=== PATIENT | female | born 1970 | race Caucasian/White ===

== ENCOUNTER 2018-11-08 08:05 | Inpatient (IN) | payer BC ==
[~2018-11-08 08:05] MED LIST: Buffered Lidocaine 1% SYRIN* 1 ML/SYRINGE INTRADERM ONE; Lactated Ringers 1000 ML Bag* 1,000 ML IV SCH; Tranexamic Acid 1,000 MG in NS 0.9% 50 ML* (outpatient use) IV SCH
--- OUTSIDE RECORDS SUMMARY | 2018-11-08 08:08 | XMS REPORT | Continuity of Care Document ---
:1970 External Reference #:[id number] Author Name Leslie Payan Care Team Providers Name Role Phone Joe William MD Primary Care Physician Unavailable Payers Date Identification Numbers Payment Provider Subscriber Policy Number: [id number] [employer] Cleopatra Dixon PayID: [id number] [address] [address] CARIE Stoner [address] Problems Active Problems Provider Date Adult health examination Joe William MD Onset: 09/04/2018 Vitamin B6 deficiency Joe William MD Onset: 09/04/2018 Chronic ulcerative proctitis Joe William MD Onset: 09/04/2018 Inflammatory polyarthropathy Joe William MD Onset: 09/04/2018 Hyperlipidemia screening Joe William MD Onset: 09/04/2018 Localized, primary osteoarthritis of the pelvic Erica Jorge Luis Rouse Onset: region and thigh Family History Date Family Member(s) Observation Comments General Thyroid Disease General Rheumatoid Arthritis General Colitis General Heart Disease General Hypertension General Stroke General Cancer Father due to liver failure () Father Liver failure Mother Thyroid Disease hypothyroid Mother Heart Disease Siblings 2 1 sister- hypothyroid 1 brother- healthy Social History Type Date Description Comments Sex Unknown Marital Status Lives With Occupation office work ETOH Use Rarely consumes alcohol Tobacco Use Start: Unknown End: Patient is a former smoker Unknown Recreational Drug Use Denies Drug Use Smoking Status Reviewed: 10/31/18 Patient is a former smoker Exercise Type/Frequency Does not exercise Allergies, Adverse Reactions, Alerts Description No Known Drug Allergies Medications Active Medications SIG Qnty Indications Ordering Provider Date B6 Natural take one 60tabs Joe William MD 08/30/2018 100mg Tablets capsule/tablet daily by mouth Plaquenil 2 by mouth daily 45tabs Avery Chawla 08/30/2018 200mg Tablets ongoing M.D. Levothyroxine Sodium 50mcg by mouth 30tabs E06.3 Pascual Velasquez MD 2018 daily on empty 50mcg Tablets stomach Mesalamine 2 tablets in the Foor-Pessin, 1.2gm Tablets am and 2 tablets Jorge Luis B[address] DR in the pm History Medications Ferrous Gluconate 1 by mouth daily 90tabs Joe William MD 09/16/2018 - 10/25/2018 324(37.5Fe) mg Tablets Celebrex take one 30caps M06.4 Avery Chawla 08/30/2018 - 200mg capsule/tablet Jorge Luis 10/12/2018 Capsules daily by mouth as needed for pain, avoid ibuprofen and other nsaids Medications Administered in Office Medication SIG Qnty Indications Ordering Provider Date Depomedrol 40MG Erica Rouse M.D. 09/13/2018 Injection Vital Signs Date Vital Result Comment 10/31/2018 8:37am Height 70 inches 5'10" Weight 195.00 lb Heart Rate 81 /min BP Systolic 126 mmHg BP Diastolic 78 mmHg Pain Level 6 O2 % BldC Oximetry 98 % BMI (Body Mass Index) 28.0 kg/m2 10/28/2018 8:44am Height 70 inches 5'10" Weight 195.25 lb Heart Rate 78 /min BP Systolic 126 mmHg BP Diastolic 78 mmHg Respiratory Rate 12 /min Pain Level 5 BMI (Body Mass Index) 28.0 kg/m2 10/25/2018 11:22am Height 70 inches 5'10" Weight 194.38 lb Heart Rate 77 /min BP Systolic 134 mmHg BP Diastolic 88 mmHg Body Temperature 97.7 F O2 % BldC Oximetry 98 % BMI (Body Mass Index) 27.9 kg/m2 10/18/2018 11:44am Height 70 inches 5'10" Weight 195.00 lb w/ shoes Heart Rate 78 /min BP Systolic Sitting 133 mmHg BP Diastolic Sitting 88 mmHg BMI (Body Mass Index) 28.0 kg/m2 10/07/2018 10:50am Height 70 inches 5'10" Weight 201.00 lb Heart Rate 78 /min BP Systolic 122 mmHg BP Diastolic 70 mmHg Respiratory Rate 12 /min Pain Level 7 BMI (Body Mass Index) 28.8 kg/m2 09/13/2018 10:58am Height 70 inches 5'10" Weight 201.00 lb BP Systolic 124 mmHg BP Diastolic 64 mmHg Body Temperature 97.9 F BMI (Body Mass Index) 28.8 kg/m2 09/04/2018 8:34am Height 71 inches 5'11" Weight 203.00 lb Heart Rate 74 /min BP Systolic 154 mmHg BP Diastolic 90 mmHg Respiratory Rate 16 /min Body Temperature 99.1 F O2 % BldC Oximetry 98 % BMI (Body Mass Index) 28.3 kg/m2 08/30/2018 9:45am Height 71 inches 5'11" Weight 202.00 lb Heart Rate 79 /min BP Systolic Sitting 122 mmHg BP Diastolic Sitting 80 mmHg Pain Level 5 O2 % BldC Oximetry 98 % BMI (Body Mass Index) 28.2 kg/m2 08/20/2018 10:49am Height 71 inches 5'11" Weight 204.00 lb w/ o shoes Heart Rate 75 /min BP Systolic Sitting 151 mmHg BP Diastolic Sitting 88 mmHg BMI (Body Mass Index) 28.4 kg/m2 07/18/2018 7:51am Height 71 inches 5'11" Weight 206.38 lb Heart Rate 108 /min BP Systolic Sitting 128 mmHg BP Diastolic Sitting 80 mmHg Pain Level 7 O2 % BldC Oximetry 97 % BMI (Body Mass Index) 28.8 kg/m2 Results Test Date Facility Test Result H/L Range Note CBC Auto 10/28/2018 [facility] White Blood 5.4 10^3/uL Normal 3.5-10.[address] [place] [address] [phone] Red Blood Count 4.83 10^6/uL Normal 3.70-4.87 Hemoglobin 13.8 g/dL Normal 12.0-16.0 Hematocrit 40 % Normal 35-47 Mean Corpuscular Volume 82 fL Normal 80-97 Mean Corpuscular Hemoglobin 29 pg Normal 27-31 Mean Corpuscular HGB Conc 35 g/dL Normal 31-36 Red Cell Distribution Width 16 % High 10-15 Platelet Count 268 10^3/uL Normal 150-450 Mean Platelet Volume 8.1 fL Normal 7.4-10.4 Abs Neutrophils 3.6 10^3/uL Normal 1.5-7.7 Abs Lymphocytes 1.3 10^3/uL Normal 1.0-4.8 Abs Monocytes 0.4 10^3/uL Normal 0-0.8 Abs Eosinophils 0.0 10^3/uL Normal 0-0.6 Abs Basophils 0.0 10^3/uL Normal 0-0.2 Abs Nucleated RBC 0.0 10^3/uL Granulocyte % 67.2 % Lymphocyte % 24.7 % Monocyte % 7.4 % Eosinophil % 0.1 % Basophil % 0.6 % Nucleated Red Blood Cells % 0.0 Inr/Protime 10/28/2018 [facility] Inr 1.06 Normal 0.82-1.[address] [place] [address] [phone] Laboratory test 10/28/2018 [facility] Partial 33.7 Normal 26.0 -38.[address] [place] [address] [place] [address] Time PTT [phone] Urinalysis 10/28/2018 [facility] Urine Color Yellow Profile [address] [place] [address] [phone] Urine Appearance Clear Urine Specific [place] 1.025 Normal 1.010-1.030 Urine pH 5.0 Normal 5-9 Urine Urobilinogen Negative Negative Urine Ketones Negative Negative Urine Protein Negative Negative Urine Leukocytes Trace Abnormal Negative Urine Blood Negative Negative Urine Nitrite Negative Negative Urine Bilirubin Negative Negative Urine Glucose Negative Negative Urine White Blood Cell Trace(0-5/hpf) Absent Urine Red Blood Cell Trace(0-2/hpf) Absent Urine Bacteria Absent Absent Urine Squamous Epithelial Cell Present Abnormal Absent Type & Screen 10/28/2018 [facility] Patient Blood Type A Negative [address] [place] [address] [phone] Antibody Screen NEGATIVE Comp Metabolic 10/28/2018 [facility] Sodium 138 mmol/L Normal 135-[address] [place] [phone] Potassium 4.1 mmol/L Normal 3.5-5.0 Chloride 109 mmol/L Normal 101-111 Co2 Carbon Dioxide 23 mmol/L Normal 22-32 Anion Gap 6 mmol/L Normal 2-11 Glucose 91 mg/dL Normal 70-100 Blood Urea Nitrogen 13 mg/dL Normal 6-24 Creatinine 0.78 mg/dL Normal 0.51-0.95 BUN/Creatinine Ratio 16.7 Normal 8-20 Calcium 9.6 mg/dL Normal 8.6-10.3 Total Protein 7.0 g/dL Normal 6.4-8.9 Albumin 4.5 g/dL Normal 3.2-5.2 Globulin 2.5 g/dL Normal 2-4 Albumin/Globulin Ratio 1.8 Normal 1-3 Total Bilirubin 0.40 mg/dL Normal 0.2-1.0 Alkaline Phosphatase 56 U/L Normal 34-104 Alt 12 U/L Normal 7-52 Ast 15 U/L Normal 13-39 Egfr Non- 78.2 >60 Egfr 94.6 >60 2 Urine Culture And 10/28/2018 [facility] Urine SEE RESULT [address] [place] [address] [phone] Order 10/25/2018 [facility] In-House EKG reviewed by Dr. William Comp Metabolic 10/25/2018 [facility] Sodium 139 mmol/L Normal 135- Panel [address] [place] [address] [phone] Potassium 4.1 mmol/L Normal 3.5-5.0 Chloride 108 mmol/L Normal 101-111 Co2 Carbon Dioxide 24 mmol/L Normal 22-32 Anion Gap 7 mmol/L Normal 2-11 Glucose 80 mg/dL Normal 70-100 Blood Urea Nitrogen 11 mg/dL Normal 6-24 Creatinine 0.82 mg/dL Normal 0.51-0.95 BUN/Creatinine Ratio 13.4 Normal 8-20 Calcium 9.6 mg/dL Normal 8.6-10.3 Total Protein 6.9 g/dL Normal 6.4-8.9 Albumin 4.5 g/dL Normal 3.2-5.2 Globulin 2.4 g/dL Normal 2-4 Albumin/Globulin Ratio 1.9 Normal 1-3 Total Bilirubin 0.40 mg/dL Normal 0.2-1.0 Alkaline Phosphatase 57 U/L Normal 34-104 Alt 11 U/L Normal 7-52 Ast 14 U/L Normal 13-39 Egfr Non- 73.8 >60 Egfr 89.3 >60 4 Laboratory test 10/25/2018 [facility] Erythrocyte Sed 5 mm/Hr Normal 0-29 [address] [place] [address] [phone] C Reactive Protein 4.73 mg/L Normal <8.01 6 CBC Auto 10/25/2018 [facility] White Blood 4.9 10^3/uL Normal 3.5-10.[address] [place] [address] [phone] Red Blood Count 4.79 10^6/uL Normal 3.70-4.87 Hemoglobin 13.3 g/dL Normal 12.0-16.0 Hematocrit 40 % Normal 35-47 Mean Corpuscular Volume 83 fL Normal 80-97 Mean Corpuscular Hemoglobin 28 pg Normal 27-31 Mean Corpuscular HGB Conc 34 g/dL Normal 31-36 Red Cell Distribution Width 16 % High 10-15 Platelet Count 266 10^3/uL Normal 150-450 Mean Platelet Volume 8.7 fL Normal 7.4-10.4 Abs Neutrophils 3.2 10^3/uL Normal 1.5-7.7 Abs Lymphocytes 1.2 10^3/uL Normal 1.0-4.8 Abs Monocytes 0.4 10^3/uL Normal 0-0.8 Abs Eosinophils 0.0 10^3/uL Normal 0-0.6 Abs Basophils 0.0 10^3/uL Normal 0-0.2 Abs Nucleated RBC 0.0 10^3/uL Granulocyte % 65.6 % Lymphocyte % 25.3 % Monocyte % 8.3 % Eosinophil % 0.1 % Basophil % 0.7 % Nucleated Red Blood Cells % 0.0 Laboratory test 10/18/2018 [facility] T4 Free Thyroxine <pending> finding [address] [place] [address] [phone] TSH Thyroid Stimulating Horm <pending> CBC Auto 09/04/2018 [facility] White Blood 4.8 10^3/uL Normal 3.5-10.[address] [place] [address] [phone] Red Blood Count 4.83 10^6/uL Normal 3.70-4.87 Hemoglobin 13.1 g/dL Normal 12.0-16.0 Hematocrit 39 % Normal 35-47 Mean Corpuscular Volume 81 fL Normal 80-97 Mean Corpuscular Hemoglobin 27 pg Normal 27-31 Mean Corpuscular HGB Conc 33 g/dL Normal 31-36 Red Cell Distribution Width 15 % Normal 10-15 Platelet Count 276 10^3/uL Normal 150-450 Mean Platelet Volume 8.4 fL Normal 7.4-10.4 Abs Neutrophils 3.3 10^3/uL Normal 1.5-7.7 Abs Lymphocytes 1.1 10^3/uL Normal 1.0-4.8 Abs Monocytes 0.3 10^3/uL Normal 0-0.8 Abs Eosinophils 0.0 10^3/uL Normal 0-0.6 Abs Basophils 0.0 10^3/uL Normal 0-0.2 Abs Nucleated RBC 0.0 10^3/uL Granulocyte % 69.3 % Lymphocyte % 23.0 % Monocyte % 7.2 % Eosinophil % 0.0 % Basophil % 0.5 % Nucleated Red Blood Cells % 0.0 Laboratory test 09/04/2018 [facility] Hemoglobin A1c 5.1 % Normal 4.0-5.6 [address] (Glyco HGB) [place] [address] [phone] Comp Metabolic 09/04/2018 [facility] Sodium 139 Normal 135- [address] mmol/[place] [address] [phone] Potassium 4.2 mmol/L Normal 3.5-5.0 Chloride 109 mmol/L Normal 101-111 Co2 Carbon Dioxide 23 mmol/L Normal 22-32 Anion Gap 7 mmol/L Normal 2-11 Glucose 89 mg/dL Normal 70-100 Blood Urea Nitrogen 12 mg/dL Normal 6-24 Creatinine 0.71 mg/dL Normal 0.51-0.95 BUN/Creatinine Ratio 16.9 Normal 8-20 Calcium 9.7 mg/dL Normal 8.6-10.3 Total Protein 6.6 g/dL Normal 6.4-8.9 Albumin 4.3 g/dL Normal 3.2-5.2 Globulin 2.3 g/dL Normal 2-4 Albumin/Globulin Ratio 1.9 Normal 1-3 Total Bilirubin 0.40 mg/dL Normal 0.2-1.0 Alkaline Phosphatase 68 U/L Normal 34-104 Alt 12 U/L Normal 7-52 Ast 14 U/L Normal 13-39 Egfr Non- 87.1 >60 Egfr 105.4 >60 8 Iron & Iron Binding 09/04/2018 [facility] Iron 40 g/dL Low 50-[address] [place] [address] [phone] Unsaturated Iron Binding < 405 g/dL Total Iron Binding Capacity 420 g/dL Normal 250-450 Transferrin 300 mg/dL Normal 203-362 % Iron Saturation 10 % Low 15-55 Laboratory test 09/04/2018 [facility] Ferritin 8.4 ng/mL Low 11-[address] [place] [address] [phone] Lipid Profile 09/04/2018 [facility] Triglycerides 135 mg/dL 10 (Trig/Chol/HDL) [address] [place] [address] [phone] Cholesterol 171 mg/dL 11 HDL Cholesterol 40.0 mg/dL 12 LDL Cholesterol 104 mg/dL 13 Laboratory test 07/18/2018 [facility] Nuclear AB <1:80 (Negative ) [address] (Laisha) [place] [address] Igg [phone] Rheumatoid Factor < 10 IU/mL Normal <15 15 Cyclic Citrullinated Pep Igg <15.6 U 16 Celiac Hla 07/18/2018 [facility] Hla-Dqa1 SEE BELOW [address] [place] [address] [phone] Hla-[id number] SEE BELOW 18 Celiac Gene Pairs Present? No Celiac Gene Interpretation See Comment 19 Laboratory test 07/18/2018 [facility] Aldolase 7.9 U/L Abnormal <7.[address] [place] [address] [phone] Uric Acid 4.4 mg/dL Normal 2.3-6.6 21 Lyme Screen W/ Reflex To WB Negative Negative 22 Vitamin B6 07/18/2018 [facility] Pyridoxal <2 g/L Abnormal 5 -[address] [place] 5[place] [address] [phone] Pyridoxic Acid 4 g/L 3-30 24 Laboratory test 07/18/2018 [facility] Vitamin D 27.7 Normal 20 -[address] Total ng/[place] [address] 25(Oh) [phone] Protein 07/18/2018 [facility] Total 7.1 g/dL 6.3 - Electrophoresis DRIVE Protein(Pep 7.9 [place] [address] ) [phone] Albumin 3.6 g/dL 3.4-4.7 Alpha-1 Globulin 0.3 g/dL 0.1-0.3 Alpha-2 Globulin 1.0 g/dL 0.6-1.0 Beta Globulin 1.1 g/dL 0.7-1.2 Gamma Globulin 1.1 g/dL 0.6-1.6 Albumin/Globulin Ratio 1.03 Impression See Comment 26 Laboratory 07/18/2018 [facility] Erythrocyte 15 mm/Hr Normal 0 -29 [address] [place] [address] [phone] Anca AB Ser If 07/18/2018 [facility] C-Anca Negative Negative [address] [place] [address] [phone] P-Anca Negative Negative 28 Laboratory test 07/18/2018 [facility] Angiotensin 50 U/L 16 - [address] Converting Enzyme [address] [place] [address] [phone] Celiac Panel 07/18/2018 [facility] Tissue <1.[address] Transglutaminase IgA U/[place] [address] Ab [phone] Immunoglobulin A 163 mg/dL 61 - 356 Celiac Interpretation See Comment 31 Laboratory test 07/18/2018 [facility] TSH (Thyroid 8.22 High 0.34-5.[address] Stim Horm) mcIU/[place] [address] [phone] Thyroperoxidase AB 1610.56 IU/mL High <9 33 Vitamin B12 07/18/2018 [facility] Vitamin B12 456 pg/mL Normal 180-[address] Serum [place], [place] [address] [phone] Folic Acid (Folate) 18.71 ng/mL >3.99 35 Ssa/SSB Abs Igg 07/18/2018 [facility] SS-A/Ro Antibody <0.[address] [place] [address] [phone] SS-B/La Antibody <0.2 U 37 Laboratory test 07/18/2018 [facility] Creatine 52 U/L Normal 10-[address] Kinase(CK) [place] [address] [phone] Hla B27 07/18/2018 [facility] Hla B27 Negative [address] [place] [address] [phone] Hla B27 Interp See Comment 40 1 Standard intensity warfarin therapeutic range: 2.0-3.0 High intensity warfarin therapeutic range: 2.5-3.5 2 Because ethnic data is not always readily available, this report includes an eGFR for both -Americans and non- Americans. The National Kidney Disease Education Program (NKDEP) does not endorse the use of the MDRD equation for patients that are not between the ages of 18 and 70, are , have extremes of body size, muscle mass, or nutritional status, or are non- or non-. According to the National Kidney Foundation, irrespective of diagnosis, the stage of the disease is based on the level of kidney function: Stage Description GFR(mL/min/1.73 m(2)) 1 Kidney damage with normal or decreased GFR 90 2 Kidney damage with mild decrease in GFR 60-89 3 Moderate decrease in GFR 30-59 4 Severe decrease in GFR 15-29 5 Kidney failure <15 (or dialysis) 3 SEE RESULT BELOW Name: CLEOPATRA DIXON : [address]: Erica Rouse MD Acct: [id number] Unit: [id number] AGE: 48 Location: [facility] Re10/28/18 SEX: F Status: REG REF SPEC: [id number] ESEQUIEL: 10/28/18-[address]: Erica Rouse MD REQ: [id number] RECD: 10/28/182 STATUS: ZITA MARIANO DR: Joe William MD _ SOURCE: URINE [facility]: ORDERED: Urine Culture QUERIES: Urine Source: Random Procedure Result Reported Site Urine Culture Final 10/29/18- 1226 ML No growth of clinically significant organisms * ML - Main Lab . END OF REPORT DEPARTMENT OF PATHOLOGY, [address] [place] [address] Dipak Cruz M.D. Director [facility] # [id number] 4 Because ethnic data is not always readily available, this report includes an eGFR for both -Americans and non- Americans. The National Kidney Disease Education Program (NKDEP) does not endorse the use of the MDRD equation for patients that are not between the ages of 18 and 70, are , have extremes of body size, muscle mass, or nutritional status, or are non- or non-. According to the National Kidney Foundation, irrespective of diagnosis, the stage of the disease is based on the level of kidney function: Stage Description GFR(mL/min/1.73 m(2)) 1 Kidney damage with normal or decreased GFR 90 2 Kidney damage with mild decrease in GFR 60-89 3 Moderate decrease in GFR 30-59 4 Severe decrease in GFR 15-29 5 Kidney failure <15 (or dialysis) 5 Please check labs 2 days before follow up 6 Please check labs 2 days before follow up 7 Therapeutic target for the treatment of diabetes mellitus patients is <7% HBA1C, and in selective patients <6.0%. Please refer to [place] [employer] diabetic care guidelines for further information. 8 Because ethnic data is not always readily available, this report includes an eGFR for both -Americans and non- Americans. The National Kidney Disease Education Program (NKDEP) does not endorse the use of the MDRD equation for patients that are not between the ages of 18 and 70, are , have extremes of body size, muscle mass, or nutritional status, or are non- or non-. According to the National Kidney Foundation, irrespective of diagnosis, the stage of the disease is based on the level of kidney function: Stage Description GFR(mL/min/1.73 m(2)) 1 Kidney damage with normal or decreased GFR 90 2 Kidney damage with mild decrease in GFR 60-89 3 Moderate decrease in GFR 30-59 4 Severe decrease in GFR 15-29 5 Kidney failure <15 (or dialysis) 9 FASTING 10 Desirable: <150 Borderline High: 150-199 High: 200-499 Very High: >500 11 Desirable: <200 Borderline High: 200-239 High: >239 12 Low: <40 Desirable: 40-60 High: >60 13 Desirable: <100 Near Optimal: 100-129 Borderline High: 130-159 High: 160-189 Very High: >189 14 <1:80 (Negative) REFERENCE VALUE <1:80 (Negative) Test Performed by: [facility] [address] [place] [address] 15 Please check this week 16 REFERENCE VALUE <20.0 (Negative) Test Performed by: [facility] [address] [place] [address] 17 RESULT: 01:02,01:02 REFERENCE VALUE Not Applicable 18 RESULT: 05:02,06:02 DQ Serologic Equivalent: 5,6 REFERENCE VALUE Not Applicable 19 The absence of HLA celiac permissive genes would make the presence of celiac disease unlikely. ADDITIONAL INFORMATION Method: Molecular typing of HLA antigens performed using reverse SSOP and/or SSP methods, reported as serological equivalents and low to medium resolution molecular values. Performing Laboratory CLIA# [id number] Test Performed by: [facility] - [address] [address] 20 Test Performed by: [facility] - [address] [address] 21 Please check this week 22 Please check this week 23 ADDITIONAL INFORMATION This test was developed and its performance characteristics determined by [facility] in a manner consistent with CLIA requirements. This test has not been cleared or approved by the U.S. Food and Drug Administration. 24 ADDITIONAL INFORMATION This test was developed and its performance characteristics determined by [facility] in a manner consistent with CLIA requirements. This test has not been cleared or approved by the U.S. Food and Drug Administration. Test Performed by: [place] [address] 25 Total 25-Hydroxyvitamin D2 and D3 (25-OH-VitD) <10 ng/mL (severe deficiency) 10-19 ng/mL (mild to moderate deficiency) 20-50 ng/mL (optimum levels) 51-80 ng/mL (increased risk of hypercalciuria) >80 ng/mL (toxicity possible) 26 RESULT: No apparent monoclonal protein on serum electrophoresis. Test Performed by: [place] [address] 27 Please check this week 28 Negative for cANCA and pANCA patterns by immunofluorescence. ADDITIONAL INFORMATION This test was developed and its performance characteristics determined by [facility] in a manner consistent with CLIA requirements. This test has not been cleared or approved by the U.S. Food and Drug Administration. Test Performed by: [place] [address] 29 Test Performed by: [facility] - [address] [address] 30 REFERENCE VALUE <4.0 (Negative) Test Performed by: [place] [address] 31 Negative serology. Celiac disease unlikely. However, approximately 10% of patients with celiac disease are seronegative. Also, patients who are already adhering to a gluten-free diet may be seronegative. If celiac disease is highly clinically suspected, consider HLA-DQ typing. Test Performed by: [place] [address] 32 Please check this week 33 Please check this week 34 Normal Range 180 to 914 Indeterminate Range 145 to 180 Deficient Range <145 35 Please check this week 36 REFERENCE VALUE <1.0 (Negative) 37 REFERENCE VALUE <1.0 (Negative) Test Performed by: [facility] [address] [place] [address] 38 Please check this week 39 REFERENCE VALUE Not Applicable 40 RESULT: HLA-B27 antigen was not detected. 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 M.D. hip M25.551 Pain in right hip M16.0 Bilateral primary osteoarthritis of hip Office Visit 09/13/2018 11:00a [facility] Erica Rouse M25.552 Pain in left Of C.M.A. M.D. 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 polyarthropathy R20.8 Other disturbances of skin sensation L30.9 Dermatitis, unspecified M54.5 Low back pain R05 Cough M54.2 Cervicalgia E55.9 Vitamin D deficiency, unspecified R79.82 Elevated C-reactive protein (CRP) M25.559 Pain in unspecified hip Plan of Treatment Future Appointment(s):04/01/2019 8:00 am - [facility] Chawla M.D. at Rheumatology [facility]11/19/2018 9:00 am - JERALD Stoll at [facility]11/08/2018 10:00 am - JERALD Irvin at [facility]11/08/2018 10:00 am - Erica Rouse M.D. at [facility]10/31/2018 - Avery Chawla M.D.M06.4 Inflammatory polyarthropathyFollow up:Follow up in 4 to 5 months or sooner if [id number] Other penitentiary (current) drug xxbythcL25.551 Pain in right hip
--- OUTSIDE RECORDS SUMMARY | 2018-11-08 08:09 | XMS REPORT | Continuity of Care Document ---
:1970 External Reference #:[id number] Author Name Funmilayo Jane Care Team Providers Name Role Phone Joe William MD Primary Care Physician Unavailable Payers Date Identification Numbers Payment Provider Subscriber Policy Number: [id number] [employer]ets Cleopatra Fuller PayID: [id number] [address] [address] CAR[place] Stoner [id number] Problems Active Problems Provider Date Adult health examination Joe William MD Onset: 09/04/2018 Vitamin B6 deficiency Joe William MD Onset: 09/04/2018 Chronic ulcerative proctitis Joe William MD Onset: 09/04/2018 Inflammatory polyarthropathy Joe William MD Onset: 09/04/2018 Hyperlipidemia screening Joe William MD Onset: 09/04/2018 Localized, primary osteoarthritis of the pelvic Erica Jorge Luis Rosue Onset: region and thigh Family History Date [...] Use Denies Drug Use Smoking Status Reviewed: 10/25/18 Patient is a former smoker Exercise Type/Frequency Does not exercise Allergies, Adverse Reactions, Alerts Description No Known Drug Allergies Medications Active Medications SIG Qnty Indications Ordering Provider Date B6 Natural take one 60tabs Joe William MD 08/30/2018 100mg Tablets capsule/tablet daily by mouth Plaquenil 2 by mouth daily 45tabs Avery Chawla 08/30/2018 200mg Tablets ongoing M.DPatricia Levothyroxine Sodium 50mcg by mouth 30tabs E06.3 [...] Injection Vital Signs Date Vital Result Comment 10/25/2018 11:22am Height 70 inches 5'10" Weight [...] Date Facility Test Result H/L Range Note Order 10/25/2018 Receiving Coordinator In-House EKG reviewed by Dr. William Laboratory test 10/18/2018 [facility] T4 Free <pending> finding [address] [place] [address] [phone] TSH Thyroid Stimulating Horm <pending> CBC Auto 09/04/2018 [facility] White Blood 4.8 10^3/uL Normal 3.5-10.[address] [place] [address] [phone] Red Blood Count 4.83 10^6/uL Normal 3.70-4.87 [...] Blood Cells % 0.0 Laboratory test 09/04/2018 [facility] Hemoglobin A1c 5.1 % Normal 4.0-5.6 1 finding 101 (Glyco HGB) [place] [address] [phone] Comp Metabolic 09/04/2018 [facility] Sodium 139 Normal 135- 145 Panel 101 mmol/L [place], [place] [address] [phone] Potassium 4.2 mmol/L Normal 3.5-5.0 Chloride 109 [...] Egfr Non- 87.1 >60 Egfr 105.4 >60 2 Iron & Iron Binding 09/04/2018 [facility] Iron 40 g/dL Low 50-212 Capacity [address] [place], [place] [address] [phone] Unsaturated Iron Binding < 405 g/dL Total Iron Binding Capacity 420 g/dL Normal 250-450 Transferrin 300 mg/dL Normal 203-362 % Iron Saturation 10 % Low 15-55 Laboratory test 09/04/2018 [facility] Ferritin 8.4 ng/mL Low 11-307 3 finding [address] [place] [address] [phone] Lipid Profile 09/04/2018 [facility] Triglycerides 135 mg/dL 4 (Trig/Chol/HDL) [address] [place], [place] [address] [phone] Cholesterol 171 mg/dL 5 HDL Cholesterol 40.0 mg/dL 6 LDL Cholesterol 104 mg/dL 7 Laboratory test 07/18/2018 [facility] Nuclear AB <1:80 (Negative ) [address] (Laisha) [place] [address] Igg [phone] Rheumatoid Factor < 10 IU/mL Normal <15 9 Cyclic Citrullinated Pep Igg <15.6 U 10 Celiac Hla 07/18/2018 [facility] Hla-Dqa1 SEE BELOW [address] [place] [address] [phone] Hla-DQB1 SEE BELOW 12 Celiac Gene Pairs Present? No Celiac Gene Interpretation See Comment 13 Laboratory test 07/18/2018 [facility] Aldolase 7.9 U/L Abnormal <7.[address] [place] [address] [phone] Uric Acid 4.4 mg/dL Normal 2.3-6.6 15 Lyme Screen W/ Reflex To WB Negative Negative 16 Vitamin B6 07/18/2018 [facility] Pyridoxal <2 g/L Abnormal 5 -[address] [place] 5[place] [address] [phone] Pyridoxic Acid 4 g/L 3-30 18 Laboratory test 07/18/2018 [facility] Vitamin D 27.7 Normal 20 -[address] Total ng/[place] [address] 25(Oh) [phone] Protein 07/18/2018 [facility] Total 7.1 g/dL 6.3 - Electrophoresis [address] Protein(Pep 7.9 [place] [address] ) [phone] Albumin 3.6 g/dL 3.4-4.7 Alpha-1 Globulin 0.3 g/dL 0.1-0.3 Alpha-2 Globulin 1.0 g/dL 0.6-1.0 Beta Globulin 1.1 g/dL 0.7-1.2 Gamma Globulin 1.1 g/dL 0.6-1.6 Albumin/Globulin Ratio 1.03 Impression See Comment 20 Laboratory 07/18/2018 [facility] Erythrocyte 15 mm/Hr Normal 0 -29 [address] Sed Rate [place], [place] [address] [phone] Anca AB Ser If 07/18/2018 [facility] C-Anca Negative Negative [address] [place] [address] [phone] P-Anca Negative Negative 22 Laboratory test 07/18/2018 [facility] Angiotensin 50 U/L 16 - [address] Converting Enzyme 85 [place] [address] [phone] Celiac Panel 07/18/2018 [facility] Tissue <1.[address] Transglutaminase IgA U/[place] [address] Ab [phone] Immunoglobulin A 163 mg/dL 61 - 356 Celiac Interpretation See Comment 25 Laboratory test 07/18/2018 [facility] TSH (Thyroid 8.22 High 0.34-5.[address] Stim Horm) mcIU/[place] [address] [phone] Thyroperoxidase AB 1610.56 IU/mL High <9 27 Vitamin B12 07/18/2018 [facility] Vitamin B12 456 pg/mL Normal 180-914 [address] Folate [address] Serum [place], [place] [address] [phone] Folic Acid (Folate) 18.71 ng/mL >3.99 29 Ssa/SSB Abs Igg 07/18/2018 [facility] SS-A/Ro Antibody <0.2 U [address] [place] [address] [phone] SS-B/La Antibody <0.2 U 31 Laboratory test 07/18/2018 [facility] Creatine 52 U/L Normal 10-223 [address] Kinase(CK) [place], [place] [address] [phone] Hla B27 07/18/2018 [facility] Hla B27 Negative [address] [place], [place] [address] [phone] Hla B27 Interp See Comment 34 1 Therapeutic target for the treatment of diabetes mellitus patients is <7% HBA1C, and in selective patients <6.0%. Please refer to [place] [employer] diabetic care guidelines for further information. 2 Because ethnic data is not always [...] 5 Kidney failure <15 (or dialysis) 3 FASTING 4 Desirable: <150 Borderline High: 150-199 High: 200-499 Very High: >500 5 Desirable: <200 Borderline High: 200-239 High: >239 6 Low: <40 Desirable: 40-60 High: >60 7 Desirable: <100 Near Optimal: 100-129 Borderline High: 130-159 High: 160-189 Very High: >189 8 <1:80 (Negative) REFERENCE VALUE <1:80 (Negative) Test Performed by: [facility] [address] [place] [address] 9 Please check this week 10 REFERENCE VALUE <20.0 (Negative) Test Performed by: [facility] [place] [address] 11 RESULT: 01:02,01:02 REFERENCE VALUE Not Applicable 12 RESULT: 05:02,06:02 DQ Serologic Equivalent: 5,6 REFERENCE VALUE Not Applicable 13 The absence of HLA celiac permissive genes would make the presence of celiac disease unlikely. ADDITIONAL INFORMATION Method: Molecular typing of HLA antigens performed using reverse SSOP and/or SSP methods, reported as serological equivalents and low to medium resolution molecular values. Performing Laboratory CLIA# [id number] Test Performed by: [facility] [place] [address] 14 Test Performed by: [facility] [place] [address] 15 Please check this week 16 Please check this week 17 ADDITIONAL INFORMATION This test was developed and its performance characteristics determined by [facility] in a manner consistent with CLIA requirements. This test has not been cleared or approved by the U.S. Food and Drug Administration. 18 ADDITIONAL INFORMATION This test was developed and its performance characteristics determined by [facility] in a manner consistent with CLIA requirements. This test has not been cleared or approved by the U.S. Food and Drug Administration. Test Performed by: [facility] [place] [address] 19 Total 25-Hydroxyvitamin D2 and D3 (25-OH-VitD) <10 ng/mL (severe deficiency) 10-19 ng/mL (mild to moderate deficiency) 20-50 ng/mL (optimum levels) 51-80 ng/mL (increased risk of hypercalciuria) >80 ng/mL (toxicity possible) 20 RESULT: No apparent monoclonal protein on serum electrophoresis. Test Performed by: [facility] [place] [address] 21 Please check this week 22 Negative for cANCA and pANCA patterns by immunofluorescence. ADDITIONAL INFORMATION This test was developed and its performance characteristics determined by [facility] in a manner consistent with CLIA requirements. This test has not been cleared or approved by the U.S. Food and Drug Administration. Test Performed by: [address] [address] 23 Test Performed by: [facility] [address] [place] [address] 24 REFERENCE VALUE <4.0 (Negative) Test Performed by: [place] [address] 25 Negative serology. Celiac disease unlikely. However, approximately 10% of patients with celiac disease are seronegative. Also, patients who are already adhering to a gluten-free diet may be seronegative. If celiac disease is highly clinically suspected, consider HLA-DQ typing. Test Performed by: [place] [address] 26 Please check this week 27 Please check this week 28 Normal Range 180 to 914 Indeterminate Range 145 to 180 Deficient Range <145 29 Please check this week 30 REFERENCE VALUE <1.0 (Negative) 31 REFERENCE VALUE <1.0 (Negative) Test Performed by: [facility] [place] [address] 32 Please check this week 33 REFERENCE VALUE Not Applicable 34 RESULT: HLA-B27 antigen was not detected. ADDITIONAL INFORMATION Method: Flow Cytometry Performing Laboratory CLIA# [id number] Test Performed by: [address] [address] Procedures Date Code Description Status 10/25/2018 56905 EKG Tracing & Interpretation Completed 09/13/2018 33981 Inj/Aspir Major JT Or Bursa W/ US Completed 05/24/2018 [id number] Mammogram Completed Encounters Type Date Location Provider Dx Diagnosis Office Visit 10/18/2018 [place] and Pascual Velasquez MD E06.3 Autoimmune 11:40a [facility] thyroiditis E04.1 Nontoxic single thyroid nodule E03.9 [...] osteoarthritis of hip Office Visit 09/04/2018 8:20a [facility] Internal Joe William MD Z00.01 Encounter for Medicine - Suite general adult R medical exam w abnormal findings 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 polyarthropathy R20.8 Other disturbances of skin sensation L30.9 Dermatitis, unspecified M54.5 Low back pain R05 Cough M54.2 Cervicalgia E55.9 Vitamin D deficiency, unspecified R79.82 Elevated C-reactive protein (CRP) M25.559 Pain in unspecified hip Plan of Treatment Future Appointment(s):11/08/2018 8:30 am - JERALD Irvin at [facility]11/08/2018 8:30 am - Erica Rouse M.D. at [facility]10/28/2018 8:45 am - Erica Rouse M.D. at [facility]10/31/2018 8:40 am - Avery Chawla M.D. at [facility]10/25/2018 - Joe William MDZ01.810 Encounter for preprocedural cardiovascular examinationFollow up:12 months or as needed.
--- OUTSIDE RECORDS SUMMARY | 2018-11-08 08:09 | XMS REPORT | Continuity of Care Document ---
:1970 External Reference #:[id number] Author Name Rosio Davis Care Team Providers Name Role Phone Joe William MD Primary Care Physician Unavailable Payers Date Identification Numbers Payment Provider Subscriber Policy Number: [id number] [employer]ets Cleopatra Fuller PayID: [id number] [address] [address] CARIE Stoner [id number] Problems Active Problems Provider Date Adult health examination Joe William MD Onset: 09/04/2018 Vitamin B6 deficiency Joe William MD Onset: 09/04/2018 Chronic ulcerative proctitis Joe William MD Onset: 09/04/2018 Inflammatory polyarthropathy Joe William MD Onset: 09/04/2018 Hyperlipidemia screening Joe William MD Onset: 09/04/2018 Localized, primary osteoarthritis of the pelvic Ericayulissa Rouse M.D. Onset: region and thigh Family History Date [...] M06.4 Avery Chawla 08/30/2018 - 200mg capsule/tablet MKwan 10/12/2018 Capsules daily by mouth as needed [...] Test Result H/L Range Note Order 10/25/2018 [facility] In-House EKG reviewed by Dr. William Comp Metabolic 10/25/2018 [facility] Sodium 139 mmol/L Normal 135-[address] [place] [address] [phone] Potassium 4.1 mmol/L Normal 3.5-5.0 Chloride 108 [...] Egfr Non- 73.8 >60 Egfr 89.3 >60 1 Laboratory test 10/25/2018 [facility] Erythrocyte Sed <pending> finding [address] [place] [address] [phone] C Reactive Protein 4.73 mg/L Normal <8.01 2 Laboratory test 10/18/2018 [facility] T4 Free Thyroxine <pending> finding [address] [place] [address] [phone] TSH Thyroid Stimulating Horm <pending> CBC Auto 09/04/2018 [facility] White Blood 4.8 10^3/uL Normal 3.5-10.[address] [place] [address] [phone] Red Blood Count 4.83 10^6/uL Normal 3.70-4.87 [...] Blood Cells % 0.0 Laboratory test 09/04/2018 [facility] Hemoglobin A1c 5.1 % Normal 4.0-5.[address] (Glyco HGB) [place] [address] [phone] Comp Metabolic 09/04/2018 [facility] Sodium 139 Normal 135- [address] mmol/[place] [address] [phone] Potassium 4.2 mmol/L Normal 3.5-5.0 Chloride 109 [...] Egfr Non- 87.1 >60 Egfr 105.4 >60 4 Iron & Iron Binding 09/04/2018 [facility] Iron 40 g/dL Low 50-[address] [place] [address] [phone] Unsaturated Iron Binding < 405 g/dL Total Iron Binding Capacity 420 g/dL Normal 250-450 Transferrin 300 mg/dL Normal 203-362 % Iron Saturation 10 % Low 15-55 Laboratory test 09/04/2018 [facility] Ferritin 8.4 ng/mL Low 11-[address] [place] [address] [phone] Lipid Profile 09/04/2018 [facility] Triglycerides 135 mg/dL 6 (Trig/Chol/HDL) [place] [address] [phone] Cholesterol 171 mg/dL 7 HDL Cholesterol 40.0 mg/dL 8 LDL Cholesterol 104 mg/dL 9 Laboratory test 07/18/2018 [facility] Nuclear AB <1:80 (Negative ) [address] (Laisha) [place] [address] Igg [phone] Rheumatoid Factor < 10 IU/mL Normal <15 11 Cyclic Citrullinated Pep Igg <15.6 U 12 Celiac Hla 07/18/2018 [facility] Hla-Dqa1 SEE BELOW [address] [place] [address] [phone] Hla-DQB1 SEE BELOW 14 Celiac Gene Pairs Present? No Celiac Gene Interpretation See Comment 15 Laboratory test 07/18/2018 [facility] Aldolase 7.9 U/L Abnormal <7.[address] [place] [address] [phone] Uric Acid 4.4 mg/dL Normal 2.3-6.6 17 Lyme Screen W/ Reflex To WB Negative Negative 18 Vitamin B6 07/18/2018 [facility] Pyridoxal <2 g/L Abnormal 5 -[address] [place] [address] [phone] Pyridoxic Acid 4 g/L 3-30 20 Laboratory test 07/18/2018 [facility] Vitamin D 27.7 Normal 20 -[address] Total ng/[place] [address] 25(Oh) [phone] Protein 07/18/2018 [facility] Total 7.1 g/dL 6.3 - Electrophoresis DRIVE Protein(Pep 7.9 [place] [address] ) [phone] Albumin 3.6 g/dL 3.4-4.7 Alpha-1 Globulin 0.3 g/dL 0.1-0.3 Alpha-2 Globulin 1.0 g/dL 0.6-1.0 Beta Globulin 1.1 g/dL 0.7-1.2 Gamma Globulin 1.1 g/dL 0.6-1.6 Albumin/Globulin Ratio 1.03 Impression See Comment 22 Laboratory 07/18/2018 [facility] Erythrocyte 15 mm/Hr Normal 0 -[address] [place] [address] [phone] Anca AB Ser If 07/18/2018 [facility] C-Anca Negative Negative DRIVE [place], [place] [address] [phone] P-Anca Negative Negative 24 Laboratory test 07/18/2018 [facility] Angiotensin 50 U/L 16 - [address] Converting Enzyme [address] [place] [address] [phone] Celiac Panel 07/18/2018 [facility] Tissue <1.[address] Transglutaminase IgA U/[place] [address] Ab [phone] Immunoglobulin A 163 mg/dL 61 - 356 Celiac Interpretation See Comment 27 Laboratory test 07/18/2018 [facility] TSH (Thyroid 8.22 High 0.34-5.[address] Stim Horm) mcIU/[place] [address] [phone] Thyroperoxidase AB 1610.56 IU/mL High <9 29 Vitamin B12 07/18/2018 [facility] Vitamin B12 456 pg/mL Normal 180-914 [address] [place] [address] [phone] Folic Acid (Folate) 18.71 ng/mL >3.99 31 Ssa/SSB Abs Igg 07/18/2018 [facility] SS-A/Ro Antibody <0.2 U [address] [place] [address] [phone] SS-B/La Antibody <0.2 U 33 Laboratory test 07/18/2018 [facility] Creatine 52 U/L Normal 10-223 [address] Kinase(CK) [place] [address] [phone] Hla B27 07/18/2018 [facility] Hla B27 Negative [address] [place] [address] [phone] Hla B27 Interp See Comment 36 1 Because ethnic data is not always readily [...] 15-29 5 Kidney failure <15 (or dialysis) 2 Please check labs 2 days before follow up 3 Therapeutic target for the treatment of diabetes mellitus patients is <7% HBA1C, and in selective patients <6.0%. Please refer to [place] [employer] diabetic care guidelines for further information. 4 Because ethnic data is not always [...] 5 Kidney failure <15 (or dialysis) 5 FASTING 6 Desirable: <150 Borderline High: 150-199 High: 200-499 Very High: >500 7 Desirable: <200 Borderline High: 200-239 High: >239 8 Low: <40 Desirable: 40-60 High: >60 9 Desirable: <100 Near Optimal: 100-129 Borderline High: 130-159 High: 160-189 Very High: >189 10 <1:80 (Negative) REFERENCE VALUE <1:80 (Negative) Test Performed by: [facility] [address] [place] [address] 11 Please check this week 12 REFERENCE VALUE <20.0 (Negative) Test Performed by: [facility] [address] [place] [address] 13 RESULT: 01:02,01:02 REFERENCE VALUE Not Applicable 14 RESULT: 05:02,06:02 DQ Serologic Equivalent: 5,6 REFERENCE VALUE Not Applicable 15 The absence of HLA celiac permissive genes would make the presence of celiac disease unlikely. ADDITIONAL INFORMATION Method: Molecular typing of HLA antigens performed using reverse SSOP and/or SSP methods, reported as serological equivalents and low to medium resolution molecular values. Performing Laboratory CLIA# [id number] Test Performed by: [facility] [place] [address] 16 Test Performed by: [facility] [place] [address] 17 Please check this week 18 Please check this week 19 ADDITIONAL INFORMATION This test was developed and its performance characteristics determined by [facility] in a manner consistent with CLIA requirements. This test has not been cleared or approved by the U.S. Food and Drug Administration. 20 ADDITIONAL INFORMATION This test was developed and its performance characteristics determined by [facility] in a manner consistent with CLIA requirements. This test has not been cleared or approved by the U.S. Food and Drug Administration. Test Performed by: [facility] [place] [address] 21 Total 25-Hydroxyvitamin D2 and D3 (25-OH-VitD) <10 ng/mL (severe deficiency) 10-19 ng/mL (mild to moderate deficiency) 20-50 ng/mL (optimum levels) 51-80 ng/mL (increased risk of hypercalciuria) >80 ng/mL (toxicity possible) 22 RESULT: No apparent monoclonal protein on serum electrophoresis. Test Performed by: [facility] [place] [address] 23 Please check this week 24 Negative for cANCA and pANCA patterns by immunofluorescence. ADDITIONAL INFORMATION This test was developed and its performance characteristics determined by [facility] in a manner consistent with CLIA requirements. This test has not been cleared or approved by the U.S. Food and Drug Administration. Test Performed by: [address] [address] 25 Test Performed by: [facility] - [address] [address] 26 REFERENCE VALUE <4.0 (Negative) Test Performed by: [place] [address] 27 Negative serology. Celiac disease unlikely. However, approximately 10% of patients with celiac disease are seronegative. Also, patients who are already adhering to a gluten-free diet may be seronegative. If celiac disease is highly clinically suspected, consider HLA-DQ typing. Test Performed by: [facility] - [address] [address] 28 Please check this week 29 Please check this week 30 Normal Range 180 to 914 Indeterminate Range 145 to 180 Deficient Range <145 31 Please check this week 32 REFERENCE VALUE <1.0 (Negative) 33 REFERENCE VALUE <1.0 (Negative) Test Performed by: [facility] - [address] [address] 34 Please check this week 35 REFERENCE VALUE Not Applicable 36 RESULT: HLA-B27 antigen was not detected. ADDITIONAL INFORMATION Method: Flow Cytometry Performing Laboratory CLIA# [id number] Test Performed by: [address] [address] Procedures Date Code Description Status 10/25/2018 62473 EKG Tracing & Interpretation Completed 09/13/2018 83297 Inj/Aspir Major JT Or Bursa W/ US Completed 05/24/2018 52089616 Mammogram Completed Encounters Type Date Location Provider Dx Diagnosis Office Visit 10/18/2018 [place] and Pascual Velasquez MD E06.3 Autoimmune 11:40a [facility] thyroiditis E04.1 Nontoxic single thyroid nodule E03.9 [...] osteoarthritis of hip Office Visit 09/04/2018 8:20a [facility] Internal Joe William MD Z00.01 Encounter for Medicine - Suite general adult R medical exam w abnormal findings 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 polyarthropathy R20.8 Other disturbances of skin sensation L30.9 Dermatitis, unspecified M54.5 Low back pain R05 Cough M54.2 Cervicalgia E55.9 Vitamin D deficiency, unspecified R79.82 Elevated C-reactive protein (CRP) M25.559 Pain in unspecified hip Plan of Treatment Future Appointment(s):11/08/2018 10:30 am - JERALD Irvin at [facility]11/08/2018 10:30 am - Erica Rouse M.D. at [facility]10/28/2018 8:45 am - Erica Rouse M.D. at [facility]10/31/2018 8:40 am - Avery Chawla M.D. at [facility]10/25/2018 - Joe William MDZ01.810 Encounter for preprocedural cardiovascular examinationFollow up:12 months or as needed.
--- OUTSIDE RECORDS SUMMARY | 2018-11-08 08:09 | XMS REPORT | Continuity of Care Document ---
:1970 External Reference #:[id number] Author Name Svetlana Turner Care Team Providers Name Role Phone Joe William MD Primary Care Physician Unavailable Payers Date Identification Numbers Payment Provider Subscriber Policy Number: [id number] [employer]ets Cleopatra Fuller PayID: [id number] [address] [address] CARIE Stoner [address] Problems Active Problems Provider Date Localized, primary osteoarthritis of the pelvic Erica Rouse M.D. Onset: region and thigh Hyperlipidemia screening Joe William MD Onset: 09/04/2018 Inflammatory polyarthropathy Joe William MD Onset: 09/04/2018 Chronic ulcerative proctitis Joe William MD Onset: 09/04/2018 Vitamin B6 deficiency Joe William MD Onset: 09/04/2018 Adult health examination Joe William MD Onset: 09/04/2018 Family History Date Family Member(s) Observation Comments [...] Use Denies Drug Use Smoking Status Reviewed: 10/18/18 Patient is a former smoker Exercise Type/Frequency Does not exercise Allergies, Adverse Reactions, Alerts Description No Known Drug Allergies Medications Active Medications SIG Qnty Indications Ordering Provider Date Ferrous Gluconate 1 by mouth daily 90tabs Joe William MD 09/16/2018 324(37.5Fe) mg Tablets B6 Natural take one 60tabs Joe William MD 08/30/2018 100mg Tablets capsule/tablet daily by mouth Plaquenil 2 by mouth daily 45tabs Avery Chawla, 08/30/2018 200mg Tablets ongoing M.D. Levothyroxine Sodium 50mcg by mouth 30tabs E06.3 Pascual Velasquez MD 2018 daily on empty 50mcg Tablets stomach Mesalamine 2 tablets in the Foor-Pessin, 1.2gm Tablets am and 2 tablets [address] DR in the pm History Medications Celebrex take one 30caps M06.4 Avery Chawla, 08/30/2018 - 200mg capsule/tablet daily M.D. 10/12/2018 Capsules by mouth as needed for pain, avoid ibuprofen and other nsaids Medications Administered in Office Medication SIG Qnty Indications Ordering Provider Date Depomedrol 40MG Erica Rouse M.D. 09/13/2018 Injection Vital Signs Date Vital Result Comment 10/18/2018 11:44am Height 70 inches 5'10" Weight [...] Date Facility Test Result H/L Range Note Laboratory test 10/18/2018 [facility] T4 Free <pending> finding [address] [place] [address] [phone] TSH Thyroid Stimulating Horm <pending> Laboratory test 09/04/2018 [facility] Hemoglobin A1c 5.1 % N 4.0-5.[address] (Glyco HGB) [place] [address] [phone] Lipid Profile 09/04/2018 [facility] Triglycerides 135 2 (Trig/Chol/HDL) [address] mg/[place] [address] [phone] Cholesterol 171 mg/dL 3 HDL Cholesterol 40.0 mg/dL 4 LDL Cholesterol 104 mg/dL 5 CBC Auto Diff 09/04/2018 [facility] White Blood 4.8 10^3/uL N 3.5-10.[address] [place] [address] [phone] Red Blood Count 4.83 10^6/uL N 3.70-4.87 Hemoglobin 13.1 g/dL N 12.0-16.0 Hematocrit 39 % N 35-47 Mean Corpuscular Volume 81 fL N 80-97 Mean Corpuscular Hemoglobin 27 pg N 27-31 Mean Corpuscular HGB Conc 33 g/dL N 31-36 Red Cell Distribution Width 15 % N 10-15 Platelet Count 276 10^3/uL N 150-450 Mean Platelet Volume 8.4 fL N 7.4-10.4 Abs Neutrophils 3.3 10^3/uL N 1.5-7.7 Abs Lymphocytes 1.1 10^3/uL N 1.0-4.8 Abs Monocytes 0.3 10^3/uL N 0-0.8 Abs Eosinophils 0.0 10^3/uL N 0-0.6 Abs Basophils 0.0 10^3/uL N 0-0.2 Abs Nucleated RBC 0.0 10^3/uL Granulocyte % 69.3 % Lymphocyte % 23.0 % Monocyte % 7.2 % Eosinophil % 0.0 % Basophil % 0.5 % Nucleated Red Blood Cells % 0.0 Comp Metabolic Panel 09/04/2018 [facility] Sodium 139 mmol/L N 135-145 [address] [place] [address] [phone] Potassium 4.2 mmol/L N 3.5-5.0 Chloride 109 mmol/L N 101-111 Co2 Carbon Dioxide 23 mmol/L N 22-32 Anion Gap 7 mmol/L N 2-11 Glucose 89 mg/dL N 70-100 Blood Urea Nitrogen 12 mg/dL N 6-24 Creatinine 0.71 mg/dL N 0.51-0.95 BUN/Creatinine Ratio 16.9 N 8-20 Calcium 9.7 mg/dL N 8.6-10.3 Total Protein 6.6 g/dL N 6.4-8.9 Albumin 4.3 g/dL N 3.2-5.2 Globulin 2.3 g/dL N 2-4 Albumin/Globulin Ratio 1.9 N 1-3 Total Bilirubin 0.40 mg/dL N 0.2-1.0 Alkaline Phosphatase 68 U/L N 34-104 Alt 12 U/L N 7-52 Ast 14 U/L N 13-39 Egfr Non- 87.1 >60 Egfr 105.4 >60 6 Laboratory test 09/04/2018 [facility] Ferritin 8.4 ng/mL Low 11-307 7 finding [address] [place] [address] [phone] Iron & Iron Binding 09/04/2018 [facility] Iron 40 g/dL Low 50-212 Capacity [address] [place] [address] [phone] Unsaturated Iron Binding < 405 g/dL Total Iron Binding Capacity 420 g/dL N 250-450 Transferrin 300 mg/dL N 203-362 % Iron Saturation 10 % Low 15-55 Laboratory test 07/18/2018 [facility] Aldolase 7.9 U/L Abnormal <7.7 8 finding [address] [place] [address] [phone] Uric Acid 4.4 mg/dL N 2.3-6.6 9 Lyme Screen W/ Reflex To WB Negative Negative 10 Vitamin B6 07/18/2018 [facility] Pyridoxal <2 g/L Abnormal 5 -[address] 5[place] [address] [phone] Pyridoxic Acid 4 g/L 3-30 12 Laboratory test 07/18/2018 [facility] Vitamin D 27.7 N 20-[address] Total 25(Oh) ng/mL [place], [place] [address] [phone] Protein 07/18/2018 [facility] Total 7.1 g/dL 6.3 - 7.[address] Protein(Pep) [place] [address] [phone] Albumin 3.6 g/dL 3.4-4.7 Alpha-1 Globulin 0.3 g/dL 0.1-0.3 Alpha-2 Globulin 1.0 g/dL 0.6-1.0 Beta Globulin 1.1 g/dL 0.7-1.2 Gamma Globulin 1.1 g/dL 0.6-1.6 Albumin/Globulin Ratio 1.03 Impression See Comment 14 Laboratory test 07/18/2018 [facility] Erythrocyte Sed 15 mm/Hr N 0-29 [address] [place] [address] [phone] Anca AB Ser If 07/18/2018 [facility] C-Anca Negative Negative [address] [place] [address] [phone] P-Anca Negative Negative 16 Laboratory test 07/18/2018 [facility] Angiotensin 50 U/L 16 - [address] Converting Enzyme [address] [place] [address] [phone] Celiac Panel 07/18/2018 [facility] Tissue <1.[address] Transglutaminase IgA U/[place] [address] Ab [phone] Immunoglobulin A 163 mg/dL 61 - 356 Celiac Interpretation See Comment 19 Laboratory test 07/18/2018 [facility] TSH (Thyroid 8.22 High 0.34-5.60 [address] Stim Horm) mcIU/[place] [address] [phone] Thyroperoxidase AB 1610.56 IU/mL High <9 21 Vitamin B12 And 07/18/2018 [facility] Vitamin B12 456 pg/mL N 180-914 22 Folate Serum [address] [place] [address] [phone] Folic Acid (Folate) 18.71 ng/mL >3.99 23 Ssa/SSB Abs Igg 07/18/2018 [facility] SS-A/Ro Antibody <0.2 U [address] [place], [place] [address] [phone] SS-B/La Antibody <0.2 U 25 Laboratory test 07/18/2018 [facility] Creatine 52 U/L N 10- 223 [address] Kinase(CK) [place], [place] [address] [phone] Hla B27 07/18/2018 [facility] Hla B27 Negative [address] [place], [place] [address] [phone] Hla B27 Interp See Comment 28 Celiac Hla 07/18/2018 [facility] Hla-Dqa1 SEE BELOW [address] [place], [place] [address] [phone] Hla-DQB1 SEE BELOW 30 Celiac Gene Pairs Present? No Celiac Gene Interpretation See Comment 31 Laboratory test 07/18/2018 [facility] Nuclear AB <1:80 (Negative ) [address] (Laisha) [place] [address] Igg [phone] Rheumatoid Factor < 10 IU/mL N <15 33 Cyclic Citrullinated Pep Igg <15.6 U 34 1 Therapeutic target for the treatment of diabetes mellitus patients is <7% HBA1C, and in selective patients <6.0%. Please refer to [place] [employer] diabetic care guidelines for further information. 2 Desirable: <150 Borderline High: 150-199 High: 200-499 Very High: >500 3 Desirable: <200 Borderline High: 200-239 High: >239 4 Low: <40 Desirable: 40-60 High: >60 5 Desirable: <100 Near Optimal: 100-129 Borderline High: 130-159 High: 160-189 Very High: >189 6 Because ethnic data is not always readily [...] 15-29 5 Kidney failure <15 (or dialysis) 7 FASTING 8 Test Performed by: [facility] [place] [id number] Please check this week 10 Please check this week 11 ADDITIONAL INFORMATION This test was developed and its performance characteristics determined by [facility] in a manner consistent with CLIA requirements. This test has not been cleared or approved by the U.S. Food and Drug Administration. 12 ADDITIONAL INFORMATION This test was developed and its performance characteristics determined by [facility] in a manner consistent with CLIA requirements. This test has not been cleared or approved by the U.S. Food and Drug Administration. Test Performed by: [facility] [address] 13 Total 25-Hydroxyvitamin D2 and D3 (25-OH-VitD) <10 ng/mL (severe deficiency) 10-19 ng/mL (mild to moderate deficiency) 20-50 ng/mL (optimum levels) 51-80 ng/mL (increased risk of hypercalciuria) >80 ng/mL (toxicity possible) 14 RESULT: No apparent monoclonal protein on serum electrophoresis. Test Performed by: [facility] [address] 15 Please check this week 16 Negative for cANCA and pANCA patterns by immunofluorescence. ADDITIONAL INFORMATION This test was developed and its performance characteristics determined by [facility] in a manner consistent with CLIA requirements. This test has not been cleared or approved by the U.S. Food and Drug Administration. Test Performed by: [address] [address] 17 Test Performed by: [facility] - [address] [address] 18 REFERENCE VALUE <4.0 (Negative) Test Performed by: [place] [address] 19 Negative serology. Celiac disease unlikely. However, approximately 10% of patients with celiac disease are seronegative. Also, patients who are already adhering to a gluten-free diet may be seronegative. If celiac disease is highly clinically suspected, consider HLA-DQ typing. Test Performed by: [address] [address] 20 Please check this week 21 Please check this week 22 Normal Range 180 to 914 Indeterminate Range 145 to 180 Deficient Range <145 23 Please check this week 24 REFERENCE VALUE <1.0 (Negative) 25 REFERENCE VALUE <1.0 (Negative) Test Performed by: [address] [address] 26 Please check this week 27 REFERENCE VALUE Not Applicable 28 RESULT: HLA-B27 antigen was not detected. ADDITIONAL INFORMATION Method: Flow Cytometry Performing Laboratory CLIA# [id number] Test Performed by: [facility] - [address] [address] 29 RESULT: 01:02,01:02 REFERENCE VALUE Not Applicable 30 RESULT: 05:02,06:02 DQ Serologic Equivalent: 5,6 REFERENCE VALUE Not Applicable 31 The absence of HLA celiac permissive genes would make the presence of celiac disease unlikely. ADDITIONAL INFORMATION Method: Molecular typing of HLA antigens performed using reverse SSOP and/or SSP methods, reported as serological equivalents and low to medium resolution molecular values. Performing Laboratory CLIA# [id number] Test Performed by: [facility] - [address] [address] 32 <1:80 (Negative) REFERENCE VALUE <1:80 (Negative) Test Performed by: [facility] - [address] [address] 33 Please check this week 34 REFERENCE VALUE <20.0 (Negative) Test Performed by: [place] [address] [address] Procedures Date Code Description Status 09/13/2018 [address] Inj/Aspir Major JT Or Purnima W/ US Completed 05/24/2018 [id number] Mammogram Completed Encounters Type Date Location Provider Dx Diagnosis Office Visit 10/07/2018 Orthopedic Erica Rouse, M25.552 Pain in left hip 10:45a [facility] M25.551 Pain in right hip M16.0 Bilateral primary osteoarthritis of hip Office Visit 09/13/2018 11:00a [facility] Erica Rouse, M25.552 Pain in left Of [facility] hip M25.551 Pain in right hip M16.0 Bilateral primary osteoarthritis of hip Office Visit 09/04/2018 8:20a [facility] Internal Joe William MD Z00.01 Encounter for Medicine - Suite general adult R medical exam w abnormal findings 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 M06.4 Inflammatory polyarthropathy K51.20 Ulcerative (chronic) proctitis without complications Z13.220 Encounter for screening for lipoid disorders E06.3 Autoimmune thyroiditis Office Visit 08/30/2018 Rheumatology Avery M06.4 Inflammatory 9:40a [facility] Jorge Luis Chawla polyarthropathy Z79.899 Other nursing home (current) drug therapy M54.5 Low back pain M25.559 Pain in unspecified hip 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 polyarthropathy R20.8 Other disturbances of skin sensation L30.9 Dermatitis, unspecified M54.5 Low back pain R05 Cough M54.2 Cervicalgia E55.9 Vitamin D deficiency, unspecified R79.82 Elevated C-reactive protein (CRP) M25.559 Pain in unspecified hip Plan of Treatment Future Appointment(s):11/08/2018 8:30 am - JERALD Irvin [facility]10/25/2018 11:20 am - Joe William MD at [facility] Internal Medicine - [address]011/08/2018 8:30 am - Erica Rouse M.D. at [facility]10/28/2018 8:45 am - Erica R[facility] M.[facility]. [facility]/2018 8:40 am - Avery Chawla M.D. at [facility]10/18/2018 - KEISHA Guerra03.9 Hypothyroidism, unspecifiedNew Labs:TSH (Thyroid Stim Horm), Scheduled: 03/26/19Free T4 (Free Thyroxine), Scheduled: 03/26/19New Xrays:US Thyroid, Scheduled: 03/26/19Follow up:6 monthsInstructions:1. Continue levothyroxine 50mcg once daily. 2. Return in 6 months for a follow-up visit after blood tests and ultrasound.
--- OUTSIDE RECORDS SUMMARY | 2018-11-08 08:09 | XMS REPORT | Continuity of Care Document ---
:1970 External Reference #:[id number] Author Name Helen Bernard Care Team Providers Name Role Phone Joe William MD Primary Care Physician Unavailable Payers Date Identification Numbers Payment Provider Subscriber Policy Number: [id number] [employer] Cleopatra Fuller PayID: [id number] [address] [address] CAR[place] Stoenr [address] Problems Active Problems Provider Date Adult health examination Joe William MD Onset: 09/04/2018 Vitamin B6 deficiency Joe William MD Onset: 09/04/2018 Chronic ulcerative proctitis Joe William MD Onset: 09/04/2018 Inflammatory polyarthropathy Joe William MD Onset: 09/04/2018 Hyperlipidemia screening Joe William MD Onset: 09/04/2018 Localized, primary osteoarthritis of the pelvic Ericaguillermina Rouse M.D. Onset: region and thigh Family [...] Use Denies Drug Use Smoking Status Reviewed: 10/28/18 Patient is a former smoker Exercise Type/Frequency [...] Injection Vital Signs Date Vital Result Comment 10/28/2018 8:44am Height 70 inches 5'10" Weight [...] Test Result H/L Range Note Order 10/25/2018 [facility] In-House EKG reviewed by Dr. William Comp Metabolic 10/25/2018 [facility] Sodium 139 mmol/L Normal 135-145 Panel [address] [place] [address] [phone] Potassium 4.1 mmol/L Normal 3.5-5.0 Chloride 108 [...] Egfr 89.3 >60 1 Laboratory test 10/25/2018 [facility] Erythrocyte Sed 5 mm/Hr Normal 0-29 [address] [place] [address] [phone] C Reactive Protein 4.73 mg/L Normal <8.01 3 CBC Auto 10/25/2018 [facility] White Blood 4.9 10^3/uL Normal 3.5-10.[address] [place] [address] [phone] Red Blood Count 4.79 10^6/uL Normal 3.70-4.87 [...] Blood Cells % 0.0 Laboratory test 10/18/2018 [facility] T4 Free Thyroxine <pending> finding [address] [place] [address] [phone] TSH Thyroid Stimulating Horm <pending> CBC Auto 09/04/2018 [facility] White Blood 4.8 10^3/uL Normal 3.5-10.[address] [place] [address] [phone] Red Blood Count 4.83 10^6/uL Normal 3.70-4.87 [...] Blood Cells % 0.0 Laboratory test 09/04/2018 [facility] Hemoglobin A1c 5.1 % Normal 4.0-5.6 [address] (Glyco HGB) [place] [address] [phone] Comp Metabolic 09/04/2018 [facility] Sodium 139 Normal 135- [address] mmol/[place] [address] [phone] Potassium 4.2 mmol/L Normal 3.5-5.0 Chloride 109 [...] Egfr Non- 87.1 >60 Egfr 105.4 >60 5 Iron & Iron Binding 09/04/2018 [facility] Iron 40 g/dL Low 50-[address] [place] [address] [phone] Unsaturated Iron Binding < 405 g/dL Total Iron Binding Capacity 420 g/dL Normal 250-450 Transferrin 300 mg/dL Normal 203-362 % Iron Saturation 10 % Low 15-55 Laboratory test 09/04/2018 [facility] Ferritin 8.4 ng/mL Low 11-[address] [place] [address] [phone] Lipid Profile 09/04/2018 [facility] Triglycerides 135 mg/dL 7 (Trig/Chol/HDL) [address] [place] [address] [phone] Cholesterol 171 mg/dL 8 HDL Cholesterol 40.0 mg/dL 9 LDL Cholesterol 104 mg/dL 10 Laboratory test 07/18/2018 [facility] Nuclear AB <1:80 (Negative ) [address] (Laisha) [place] [address] Igg [phone] Rheumatoid Factor < 10 IU/mL Normal <15 12 Cyclic Citrullinated Pep Igg <15.6 U 13 Celiac Hla 07/18/2018 [facility] Hla-Dqa1 SEE BELOW [address] [place] [address] [phone] Hla-DQB1 SEE BELOW 15 Celiac Gene Pairs Present? No Celiac Gene Interpretation See Comment 16 Laboratory test 07/18/2018 [facility] Aldolase 7.9 U/L Abnormal <7.[address] [place] [address] [phone] Uric Acid 4.4 mg/dL Normal 2.3-6.6 18 Lyme Screen W/ Reflex To WB Negative Negative 19 Vitamin B6 07/18/2018 [facility] Pyridoxal <2 g/L Abnormal 5 -[address] 5[place] [address] [phone] Pyridoxic Acid 4 g/L 3-30 21 Laboratory test 07/18/2018 [facility] Vitamin D 27.7 Normal 20 -[address] Total ng/[place] [address] 25(Oh) [phone] Protein 07/18/2018 [facility] Total 7.1 g/dL 6.3 - Electrophoresis DRIVE Protein(Pep 7.9 [place] [address] ) [phone] Albumin 3.6 g/dL 3.4-4.7 Alpha-1 Globulin 0.3 g/dL 0.1-0.3 Alpha-2 Globulin 1.0 g/dL 0.6-1.0 Beta Globulin 1.1 g/dL 0.7-1.2 Gamma Globulin 1.1 g/dL 0.6-1.6 Albumin/Globulin Ratio 1.03 Impression See Comment 23 Laboratory 07/18/2018 [facility] Erythrocyte 15 mm/Hr Normal 0 -[address] Sed Rate [place], [place] [address] [phone] Anca AB Ser If 07/18/2018 [facility] C-Anca [place] [address] [phone] P-Anca Negative Negative 25 Laboratory test 07/18/2018 [facility] Angiotensin 50 U/L 16 - [address] Converting Enzyme [address] [place] [address] [phone] Celiac Panel 07/18/2018 [facility] Tissue <1.[address] Transglutaminase IgA U/[place] [address] Ab [phone] Immunoglobulin A 163 mg/dL 61 - 356 Celiac Interpretation See Comment 28 Laboratory test 07/18/2018 [facility] TSH (Thyroid 8.22 High 0.34-5.[address] Stim Horm) mcIU/mL [place], [place] [address] [phone] Thyroperoxidase AB 1610.56 IU/mL High <9 30 Vitamin B12 07/18/2018 [facility] Vitamin B12 456 pg/mL Normal 180-914 [address] [place] [address] [phone] Folic Acid (Folate) 18.71 ng/mL >3.99 32 Ssa/SSB Abs Igg 07/18/2018 [facility] SS-A/Ro Antibody <0.[address] [place] [address] [phone] SS-B/La Antibody <0.2 U 34 Laboratory test 07/18/2018 [facility] Creatine 52 U/L Normal 10-223 [address] Kinase(CK) [place] [address] [phone] Hla B27 07/18/2018 [facility] Hla B27 Negative [address] [place] [address] [phone] Hla B27 Interp See Comment 37 1 Because ethnic data is not always [...] labs 2 days before follow up 3 Please check labs 2 days before follow up 4 Therapeutic target for the treatment of diabetes mellitus patients is <7% HBA1C, and in selective patients <6.0%. Please refer to [place] [employer] diabetic care guidelines for further information. 5 Because ethnic data is not always readily [...] 15-29 5 Kidney failure <15 (or dialysis) 6 FASTING 7 Desirable: <150 Borderline High: 150-199 High: 200-499 Very High: >500 8 Desirable: <200 Borderline High: 200-239 High: >239 9 Low: <40 Desirable: 40-60 High: >60 10 Desirable: <100 Near Optimal: 100-129 Borderline High: 130-159 High: 160-189 Very High: >189 11 <1:80 (Negative) REFERENCE VALUE <1:80 (Negative) Test Performed by: [facility] [employer] [facility] [employer] [place] [address] 12 Please check this week 13 REFERENCE VALUE <20.0 (Negative) Test Performed by: [facility] [place] [employer] [place] [address] 14 RESULT: 01:02,01:02 REFERENCE VALUE Not Applicable 15 RESULT: 05:02,06:02 DQ Serologic Equivalent: 5,6 REFERENCE VALUE Not Applicable 16 The absence of HLA celiac permissive genes would make the presence of celiac disease unlikely. ADDITIONAL INFORMATION Method: Molecular typing of HLA antigens performed using reverse SSOP and/or SSP methods, reported as serological equivalents and low to medium resolution molecular values. Performing Laboratory CLIA# [id number] Test Performed by: [place] [id number] Test Performed by: [facility] - [address] [address] 18 Please check this week 19 Please check this week 20 ADDITIONAL INFORMATION This test was developed and its performance characteristics determined by [facility] in a manner consistent with CLIA requirements. This test has not been cleared or approved by the U.S. Food and Drug Administration. 21 ADDITIONAL INFORMATION This test was developed and its performance characteristics determined by [facility] in a manner consistent with CLIA requirements. This test has not been cleared or approved by the U.S. Food and Drug Administration. Test Performed by: [facility] [place] [address] 22 Total 25-Hydroxyvitamin D2 and D3 (25-OH-VitD) <10 ng/mL (severe deficiency) 10-19 ng/mL (mild to moderate deficiency) 20-50 ng/mL (optimum levels) 51-80 ng/mL (increased risk of hypercalciuria) >80 ng/mL (toxicity possible) 23 RESULT: No apparent monoclonal protein on serum electrophoresis. Test Performed by: [facility] [place] [address] 24 Please check this week 25 Negative for cANCA and pANCA patterns by immunofluorescence. ADDITIONAL INFORMATION This test was developed and its performance characteristics determined by [facility] in a manner consistent with CLIA requirements. This test has not been cleared or approved by the U.S. Food and Drug Administration. Test Performed by: [facility] [place] [address] 26 Test Performed by: [facility] - [address] [address] 27 REFERENCE VALUE <4.0 (Negative) Test Performed by: [address] [address] 28 Negative serology. Celiac disease unlikely. However, approximately 10% of patients with celiac disease are seronegative. Also, patients who are already adhering to a gluten-free diet may be seronegative. If celiac disease is highly clinically suspected, consider HLA-DQ typing. Test Performed by: [facility] - [address] [address] 29 Please check this week 30 Please check this week 31 Normal Range 180 to 914 Indeterminate Range 145 to 180 Deficient Range <145 32 Please check this week 33 REFERENCE VALUE <1.0 (Negative) 34 REFERENCE VALUE <1.0 (Negative) Test Performed by: [facility] - [address] [address] 35 Please check this week 36 REFERENCE VALUE Not Applicable 37 RESULT: HLA-B27 antigen was not detected. ADDITIONAL INFORMATION Method: Flow Cytometry Performing Laboratory CLIA# [id number] Test Performed by: [facility] - [address] [address] Procedures Date Code Description Status 10/25/2018 14773 EKG Tracing & Interpretation Completed 09/13/2018 94775 Inj/Aspir Major JT Or Purnima W/ US Completed 05/24/2018 [id number] Mammogram Completed Encounters Type Date Location Provider Dx Diagnosis Office Visit 10/18/2018 [place] [facility] Pascual Velasquez MD E06.3 Autoimmune 11:40a [facility] thyroiditis E04.1 Nontoxic single thyroid nodule E03.9 Hypothyroidism, unspecified Office Visit 10/07/2018 10:45a [facility] Erica Rouse, M25.552 Pain in left Of [facility] M.D. hip M25.551 Pain in right hip M16.0 Bilateral primary osteoarthritis of hip Office Visit 09/13/2018 11:00a [facility] Erica Rouse, M25.552 Pain in left Of C.M.A. M.D. 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 polyarthropathy R20.8 Other disturbances of skin sensation L30.9 Dermatitis, unspecified M54.5 Low back pain R05 Cough M54.2 Cervicalgia E55.9 Vitamin D deficiency, unspecified R79.82 Elevated C-reactive protein (CRP) M25.559 Pain in unspecified hip Plan of Treatment Future Appointment(s):11/19/2018 9:00 am - JERALD Stoll at [facility]11/08/2018 10:30 am - JERALD Irvin at [facility]11/08/2018 10:30 am - Erica Rouse M.D. at [facility]/31/2018 8:40 am - [facility] Chawla M.D. at [facility]
[2018-11-08] MEDS ORDERED: Propofol* 10 MG/ML 20 ML BTL ONE (08:47)
[2018-11-08] MEDS ORDERED: Lidocaine 2% PF * 5 ML VIAL ONE (08:47)
[2018-11-08] MEDS ORDERED: ROPIVACAINE 5 MG/ML 30 ML BTL (0.5%) ONE (08:58)
[2018-11-08] MEDS ORDERED: Midazolam* 1 MG/ML 2 ML VIAL (2 MG) ONE (09:04)
[2018-11-08] MEDS ORDERED: Dexmedetomidine* 200 MCG/2 ML 2 ML VIAL ONE (09:07)
[2018-11-08] MEDS ORDERED: ceFAZolin 2 GM in NS PREMIX(*) 2 GM/100 ML BAG IVPB ONE (09:13)
[2018-11-08] MEDS ORDERED: Buffered Lidocaine 1% SYRIN* 1 ML/SYRINGE INTRADERM ONE (09:13)
[2018-11-08] MEDS ORDERED: Rocuronium* 10 MG/ML VIAL ONE (10:22)
[2018-11-08] MEDS ORDERED: fentaNYL* 50 MCG/ML 2 ML VIAL (100 MCG VIAL) ONE (10:22)
[2018-11-08] MEDS ORDERED: Dexamethasone IV* 4 MG/ML 1 ML (4 MG) ONE (10:30)
[2018-11-08] MEDS ORDERED: Ketorolac INJ* 30 MG/ML 1 ML VIAL ONE (10:30)
[2018-11-08] MEDS ORDERED: Metoclopramide IV* 5 MG/ML 2 ML VIAL ONE (10:30)
[2018-11-08] MEDS ORDERED: Ondansetron INJ* 2 MG/ML VIAL ONE (10:30)
[2018-11-08] MEDS ORDERED: EPHEDrine (Pressors)* 50 MG/ML VIAL ONE (11:35)
[2018-11-08] MEDS ORDERED: Acetaminophen IV 1GM/100ML * 100 ML ONE (12:14)
[2018-11-08] MEDS ORDERED: HYDROmorphone INJ1* 1 MG/ML SYRINGE IV PRN (12:43)
[2018-11-08] MEDS ORDERED: Naloxone* 0.4 MG/ML 1 ML VIAL IV PRN (12:43)
[2018-11-08] MEDS ORDERED: DiMENhydriNATE IV* 50 MG/ML VIAL IV PUSH PRN (12:43)
--- NOTE | 2018-11-08 12:55 | OP ---
Operative Report - Blank - Operative Report Date of Operation: 11/08/18 Note: JAYCEE DIXON 1970 Date Of Surgery: 11/08/18 Erica Rouse MD Senior Test Engineer: Marisa BOYD did help throughout the procedure with preparation of the hip, wound retraction, manipulation of the hip, and wound closure. Anesthesiologist: Live Mcgarry MD Anesthesia Type: General Preoperative Diagnosis: Right severe degenerative osteoarthritis of the hip Postoperative Diagnosis: As above Procedure Performed: Right Total Hip Arthroplasty Complications: None Specimen: Femoral head and acetabular reamings sent to pathology. Hardware used: This is uncemented Babatunde total hip arthroplasty hardware for the femur a size 3 accolade II with 127 neck angle femoral component, for the acetabulum a size 50D trident II tritanium cluster hole shell, two 15 mm screws , for the insert a size 38 D cementless MDM insert, and for the femoral head a size 22.2 + 8 LFIT V40 femoral head with a 22.2/38/38D MDM X3 insert for MDM liner. Brief history/Indication: JAYCEE DIXON was known in clinic and had a history of severe right hip pain. She failed conservative treatment with anti- inflammatories, pain pills, intra-articular injections and physical therapy. She elected to undergo right total hip arthroplasty due to continued pain and decreased quality of life. Radiographs showed severe end stage osteoarthritis of the hip with bone on bone contact. Informed consent was obtained from the patient. She understood the risks of surgery included but were not limited to: bleeding, infection, damage to nearby structures, intraoperative fracture, nerve palsy, failure of the hardware, early loosening, stiffness or loss of motion, dislocation, leg length discrepancy, anesthesia complications, stroke, heart attack, blood clot and . She wished to proceed. Intra-Operative findings: Intraoperatively the patient was noted to have severe loss of cartilage of the acetabulum and femoral head. She had a dysplastic acetabulum with minimal posterior and superior wall. She had minimal acetabular bone stock. She was noted to have laxity of the soft tissue and muscles around the hip. Description of the Procedure: JAYCEE DIXON was identified in the preanesthesia unit. Her right hip was marked as the correct operative side. Informed consent was signed and placed in the chart. The patient was taken to the operating room and placed under anesthesia without complication. A french catheter was placed. The patient was placed on the peg board with all bony prominences well padded. The right lower extremity was prepped and draped in the usual sterile fashion. Preoperative time -out was made to correctly identify the patient, side and site. Appropriate intraoperative antibiotics were given within one hour of incision. A standard posterior incision was made and carried sharply down to the lateral fascia. A new 10 blade was used to make an incision in the fascia in line with the skin incision. A charnley retractor was placed. The piriformis and conjoined tendons were identified and elevated off the posterolateral femur using electrocautery. These were tagged with number 5 Ethibond. Next electrocautery was used to make a posterolateral capsular flap and this was tagged with number 5 Ethibonds. The hip was carefully dislocated. Lesser trochanter to the center of the femoral head was measured at 65 mm. The oscillating saw was used to make the femoral neck cut. The femoral head was carefully removed. The femur was retracted anteriorly and the acetabular retractors were placed. Long-handled knife was used to sharply remove any remaining labrum from the acetabular rim. The acetabulum was sequentially reamed up to a size 50. A bleeding subchondral bone bed was obtained. A trial liner was placed and had excellent fit and stability. A 50D trident II tritanium cup with two 15 mm screws was placed and had excellent stability with appropriate anteversion and abduction angle. A size 38D cementless MDM liner was impacted into the acetabular shell. The liner was checked for stability and was stable. Next attention was turned to preparation of the femoral canal. A canal finder was used to enter the proximal femur. The femoral canal was sequentially broached up to a size 3 femoral broach trial. A trial neck and 22.2 +8 trial femoral head with the 22.2/38D MDM insert trial was chosen. Lesser trochanter to center of the femoral head measurement was satisfactory. The hip was reduced and taken through a range of motion. The hip was stable in all positions with good soft tissue tension and appropriate leg lengths. The hip was dislocated and all trials were removed. The final implant chosen was a size 3 accolade II stem with a 127 neck angle. This stem was impacted into the femoral canal without difficulty. The stem was stable with appropriate anteversion. The femoral head chosen was a 22.2 + 8 LFIT head with the 22.2/38D MDM liner. The head was impacted onto the femoral neck without difficulty. The final lesser trochanter to center of the femoral head measurement was satisfactory. The hip was reduced and taken through a range of motion. The hip was stable in all positions with good soft tissue tension and appropriate leg lengths. The hip was copiously irrigated with sterile saline. The previously tagged capsule and tendons were repaired to the posterolateral femur through two trochanteric drill holes. The lateral fascia layer was closed using number 1 vicryls. The rest of the incision was closed in a layered fashion using 0 and 2-0 vicryls. The skin was closed using 3-0 monocryl suture and Dermabond. Sterile adaptic, 4x4s and paper tape was used to cover the incision. The patients anesthesia was reversed without difficulty. She was taken to the PACU in stable condition. Intended weight-bearing will be as tolerated with posterior hip precautions.
[2018-11-08] MEDS ORDERED: diPHENhydraMINE IV* 50 MG/ML 1 ml VIAL (BENADRYL) IV PRN (13:06)
[2018-11-08] MEDS ORDERED: traZODone TAB* 50 MG TAB PO PRN (13:06)
[2018-11-08] MEDS ORDERED: Ondansetron ODT TAB* 4 MG PO PRN (13:06)
[2018-11-08] MEDS ORDERED: traMADol TAB* 50 MG PO PRN (13:06)
[2018-11-08] MEDS ORDERED: oxyCODONE/Acetamin 5/325 MG* TAB PO PRN ×2 (13:06)
[2018-11-08] MEDS ORDERED: Cyclobenzaprine TAB* 10 MG PO PRN (13:06)
[2018-11-08] MEDS ORDERED: Magnesium Hydroxide LIQ* 30 ML UDC PO PRN (13:06)
[2018-11-08] MEDS ORDERED: Morphine INJ* 2 MG/ML 1 ML SYRINGE (TWO MG - NEW SYRINGE VERSION) IV PRN (13:06)
[2018-11-08] MEDS ORDERED: Polyethylene Glycol 3350* 17 GM PACKET PO PRN (13:06)
[2018-11-08] MEDS ORDERED: diPHENhydraMINE PO* 25 MG PO PRN (13:06)
[2018-11-08] MEDS ORDERED: Bisacodyl SUPP* 10 MG SUPP PR PRN (13:06)
[2018-11-08] MEDS ORDERED: Pyridoxine TAB* 50 MG PO PRN (13:13)
[2018-11-08] MEDS ORDERED: DiMENhydriNATE IV* 50 MG/ML VIAL ONE (13:38)
[2018-11-08] MEDS ORDERED: oxyCODONE TAB* 5 MG TAB ONE (13:38)
[2018-11-08] MEDS: oxyCODONE TAB* 5 MG TAB PO PRN ×3 (13:40→18:17)
[2018-11-08] MEDS: Lactated Ringers 1000 ML Bag* 1,000 ML IV SCH (15:30)
[2018-11-08] MEDS: Ondansetron INJ* 2 MG/ML VIAL IV PRN (16:05)
[2018-11-08] MEDS: ceFAZolin 1 GM ADVAN(*) 1 GM in NS 0.9% 50 ML* 50 ML IVPB SCH (18:02)
[2018-11-08] MEDS: Docusate CAP* 100 MG PO SCH (21:22)
[2018-11-08] MEDS: Magnesium Hydroxide LIQ* 30 ML UDC PO SCH (21:22)
[2018-11-08] MEDS: Hydroxychloroquine TAB* 200 MG PO SCH (21:31)
[2018-11-08] MEDS: Acetaminophen TAB* 325 MG PO SCH (22:41)
[2018-11-09] MEDS: Lactated Ringers 1000 ML Bag* 1,000 ML IV SCH (02:12)
[2018-11-09] MEDS: ceFAZolin 1 GM ADVAN(*) 1 GM in NS 0.9% 50 ML* 50 ML IVPB SCH ×2 (02:14→10:23)
[2018-11-09] MEDS: oxyCODONE TAB* 5 MG TAB PO PRN ×4 (03:10→22:26)
[2018-11-09] MEDS: Acetaminophen TAB* 325 MG PO SCH ×3 (06:23→22:27)
[2018-11-09] MEDS: Levothyroxine TAB* 50 MCG TAB PO SCH (06:24)
[2018-11-09 06:26] LABS: Hematocrit 29 % (35-47); Mean Platelet Volume 8.2 fL (7.4-10.4); Platelet Count 248 10^3/uL (150-450)
[2018-11-09 06:43] LABS: BUN/Creatinine Ratio 11.3 (8-20); Calcium 8.4 mg/dL (8.6-10.3); EGFR African American 105.4 (>60); EGFR Non-African American 87.1 (>60); Potassium 3.6 mmol/L (3.5-5.0)
--- NOTE | 2018-11-09 07:26 | PN ---
Progress Note - Progress Note Date of Service: 11/09/18 SOAP: Subjective: [Pt reports doing well. Pain has been managed by Percocet and the last one she took was around 0300. Had some N/V last night but has not felt nauseous since. Has been up WB with walker and assist. Has been to BR. Denies CP, dizziness , SOB.] Objective: [A and O x3, NAD R hip dressing C/D/I. Distal gross motor and NV status intact. Calves soft, NT. Vital Signs: Temp Pulse Resp BP Pulse Ox 98.5 F 85 16 114/65 100 11/09/18 04:00 11/09/18 04:00 11/09/18 04:00 11/09/18 04:00 11/09/18 04:00 Laboratory Results - last 24 hr 11/09/18 11/09/18 05:48 05:48 Hgb 10.0 L Hct 29 L Plt Count 248 MPV 8.2 Sodium 139 Potassium 3.6 Chloride 109 Carbon Dioxide 24 Anion Gap 6 BUN 8 Creatinine 0.71 Est GFR ( Amer) 105.4 Est GFR (Non-Af Amer) 87.1 BUN/Creatinine Ratio 11.3 Glucose 114 H Calcium 8.4 L ] Assessment: [48 you female s/p R TED POD #1 doing well] Plan: [PT/OT - WBAT R JEROD Freeman for DVT prophylaxis Percocet for pain Dressing change tomorrow Possible D/C home tomorrow]
[2018-11-09] MEDS: Ondansetron INJ* 2 MG/ML VIAL IV PRN (07:35)
[2018-11-09] MEDS: Apixaban* 2.5 MG TAB PO SCH ×2 (08:54→21:39)
[2018-11-09] MEDS: Docusate CAP* 100 MG PO SCH ×2 (08:55→21:39)
[2018-11-09] MEDS: Magnesium Hydroxide LIQ* 30 ML UDC PO SCH ×2 (08:55→21:39)
[2018-11-09] MEDS: Hydroxychloroquine TAB* 200 MG PO SCH (21:38)
[2018-11-10 05:31] LABS: Hematocrit 31 % (35-47); Hemoglobin 10.4 g/dL (12.0-16.0); Mean Platelet Volume 8.4 fL (7.4-10.4); Platelet Count 285 10^3/uL (150-450)
[2018-11-10] MEDS: Acetaminophen TAB* 325 MG PO SCH (06:04)
[2018-11-10] MEDS: Levothyroxine TAB* 50 MCG TAB PO SCH (06:04)
[2018-11-10] MEDS: Magnesium Hydroxide LIQ* 30 ML UDC PO SCH (07:16)
[2018-11-10 07:38] VITALS: BP 112/61
[2018-11-10] MEDS: oxyCODONE TAB* 5 MG TAB PO PRN (08:15)
[2018-11-10] MEDS: Apixaban* 2.5 MG TAB PO SCH (08:16)
[2018-11-10] MEDS: Docusate CAP* 100 MG PO SCH (08:16)
--- NOTE | 2018-11-10 09:34 | PN ---
Progress Note - Progress Note Date of Service: 11/09/18 SOAP: Subjective: [Pt reports doing well. R hip pain managed with po meds. Feeling much better today as far as lightheadedness is concerned. Denies CP, SOB, nausea. Has done stairs with PT. Has had small BM. Feels ready to go home.] Objective: [A and O x 3, NAD at bedside R hip dressing changed, surgical incision benign. Skin edges well approximated - no drainage or erythema Calves soft, NT. Distal gross motor, NV function intact] Assessment: [s/p R TED POD #2] Plan: [D/C pt home with services Pete Bedolla F/U with Dr. Rouse 2 weeks]
--- NOTE | 2018-11-11 13:19 | DS ---
DISCHARGE SUMMARY: DATE OF ADMISSION: 11/08/17 DATE OF DISCHARGE: 11/10/18 PROVIDER: Erica Rouse MD ADMITTING PHYSICIAN: Dr. Rouse* (dictated by DEB Arellano). ADMITTING DIAGNOSES: 1. Right hip osteoarthritis. 2. Ulcerative colitis. 3. Hypothyroidism. 4. Diverticulitis. DISCHARGE DIAGNOSES: 1. Status post right total hip arthroplasty. 2. Ulcerative colitis. 3. Hypothyroidism. 4. Diverticulitis. PROCEDURE: Right total hip arthroplasty. CONSULTANTS: Physical Therapy, Occupational Therapy, and Medicine. BRIEF HISTORY: Ms. Fuller is a 48-year-old female with severe degenerative osteoarthritis of her right hip. She failed conservative treatment measures and elected to undergo a right total hip arthroplasty on 11/08/[address] Rouse. HOSPITAL COURSE: Ms. Fuller was admitted to the [facility] on . She underwent an uncomplicated right total hip arthroplasty. Postoperatively, she recovered on the short stay surgical unit. Her Ferrer catheter was removed on postoperative day 1 and she was able to urinate on her own. On postoperative day #2, she was able to have a bowel movement. She advanced to a regular diet without difficulty. Her pain was well controlled with oxycodone. She experienced some low blood pressure readings on postoperative day #1 and administered a fluid bolus that seemed to correct her blood pressure back to normal range, after which she denied any lightheadedness or dizziness. She advanced appropriately with physical therapy and occupational therapy. Her DVT prophylaxis was Eliquis. By postoperative day #2 , she was orthopedically and medically stable for discharge home with services. PHYSICAL EXAMINATION: General: On examination, the patient is noted to be calm and cooperative, in no acute distress. She is alert and oriented x3. Vital Signs: On day of discharge, temperature 98.5 degrees, pulse rate 76, respiratory rate 16, O2 sat 98% on room air, blood pressure 112/61. Extremities : Examination of her right lower extremity demonstrates a dressing overlying the right hip which is clean, dry, and intact. Her thigh and calf are compressible and nontender. Distally, she has +2 palpable DP pulse, gross motor and sensation intact. DIAGNOSTIC STUDIES/LAB DATA: Laboratory data on date of discharge, H and H 10.. Radiographs: Postoperative radiographs of the right hip demonstrate a right hip total arthroplasty with satisfactory prosthesis placement and no acute bony abnormalities. DISCHARGE MEDICATIONS: 1. Vitamin B6 natural 100 mg daily. 2. Plaquenil 200 mg 2 tabs daily. 3. Levothyroxine sodium 50 mcg daily. 4. Mesalamine 1.2 g 2 tablets in the a.m., 2 tablets in the p.m. 5. Oxycodone 5 mg 1 to 2 tabs q.4 to 6 hours p.r.n. pain. 6. Eliquis 2.5 mg b.i.d. x1 month. 7. Colace 100 mg p.o. t.i.d. p.r.n. constipation. CONDITION ON DISCHARGE: Stable. DISCHARGE INSTRUCTIONS: Ms. Fuller is a 48-year-old female postoperative day #2 status post right total hip arthroplasty which was uncomplicated. She is orthopedically and medically stable to be discharged home with services. She has stable vital signs and labs. She will remain weightbearing as tolerated on the right lower extremity and has home physical therapy twice a day. She will use oxycodone for pain control and Eliquis for DVT prophylaxis. Colace for constipation as needed. She will follow up with Dr. Rouse in the office in approximately 14 days postop for incision check. She was instructed to call Dr. Rouse or go immediately to the ER should she develop any new fevers, chills , incision pain, redness, or drainage. She was instructed to go immediately to the ER should she develop chest pain or shortness of breath. DEB ARELLANO [id number]/[facility] #: [id number] [facility]ICAL CENTERBrandyn
== END 2018-11-10 11:10 | disposition home health service (06) | DRG 301 ==
LOC: AA 08:05 → SSU 15:38
PROVIDERS: ADMIT Orthopaedic Surgery Adult Reconstructive Orthopaedic Surgery; ATTEND Orthopaedic Surgery Adult Reconstructive Orthopaedic Surgery
PROC: 0SR904A Replacement of Right Hip Joint with Ceramic on Polyethylene Synthetic Substitute, Uncemented, Open Approach (ICD-10-PCS; principal; 2018-11-08 09:45)
DX: M16.11 Unilateral primary osteoarthritis, right hip (principal); K51.90 Ulcerative colitis, unspecified, without complications; E03.9 Hypothyroidism, unspecified; K57.90 Diverticulosis of intestine, part unspecified, without perforation or abscess without bleeding; E53.1 Pyridoxine deficiency; I95.9 Hypotension, unspecified; Z79.899 Other long term (current) drug therapy; Z82.49 Family history of ischemic heart disease and other diseases of the circulatory system; Z82.3 Family history of stroke; Z83.49 Family history of other endocrine, nutritional and metabolic diseases; Z82.61 Family history of arthritis; Z87.891 Personal history of nicotine dependence
CPT/HCPCS: 36415; 80048; 85014; 85018; 85049; 88304; 88311; A9270-GY; C1713; C1776; J0690; J1100; J1240; J1885; J2250; J2405; J2704; J2765; J2795; J3010

== ENCOUNTER 2020-08-20 11:30 | Inpatient (IN) ==
[~2020-08-20 11:30] MED LIST changes: +Buffered Lidocaine 1% SYRIN 1 ml INTRADERM ONE; -Buffered Lidocaine 1% SYRIN* 1 ML/SYRINGE INTRADERM ONE; -Lactated Ringers 1000 ML Bag* 1,000 ML IV SCH; +Lactated Ringers 1000 ml BAG 1,000 ML IV SCH; -Tranexamic Acid 1,000 MG in NS 0.9% 50 ML* (outpatient use) IV SCH
[2020-08-20] MEDS ORDERED: ceFAZolin 2 GM PREMIX 0 GM/0 ML BAG ONE (12:31)
[2020-08-20] MEDS ORDERED: Tranexamic Acid 1 GM/100ML BAG 0 MG/0 ML BAG IV ONE (12:31)
[2020-08-20] MEDS ORDERED: ceFAZolin 2 GM PREMIX 2 GM/50 ML BAG ONE (13:04)
[2020-08-20] MEDS ORDERED: fentaNYL 100 mcg/2 ml 50 MCG/ML VIAL ONE ×2 (13:54→17:16)
[2020-08-20] MEDS ORDERED: Midazolam 2 mg/2 ml VIAL 1 mg/ml 2 ml VIAL (2 mg) ONE ×2 (13:54→14:21)
[2020-08-20] MEDS ORDERED: Magnesium Hydroxide LIQ 30 ML UDC PO PRN (15:02)
[2020-08-20] MEDS ORDERED: diPHENhydraMINE IV 50 MG/ML 1 ml VIAL (BENADRYL) IV PRN (15:02)
[2020-08-20] MEDS ORDERED: diPHENhydraMINE 25 mg TAB PO PRN (15:02)
[2020-08-20] MEDS ORDERED: Ondansetron 4 mg VIAL 2 MG/ML 2 ml VIAL IV PRN (15:02)
[2020-08-20] MEDS ORDERED: Morphine 2 MG/ML SYRINGE IV PRN (15:02)
[2020-08-20] MEDS ORDERED: Lactulose 30 ml UDC PO PRN (15:02)
[2020-08-20] MEDS ORDERED: Ondansetron ODT 4 mg TAB 4 MG TAB PO PRN (15:02)
[2020-08-20] MEDS ORDERED: Phenylephrine 40 mcg/mL 10mL (400mcg) SYRINGE ONE (15:03)
[2020-08-20] MEDS ORDERED: EPHEDrine (Pressors) 50 MG/ML VIAL ONE (15:15)
[2020-08-20] MEDS ORDERED: Propofol 10 MG/ML 20 ML BTL ONE (16:27)
[2020-08-20] MEDS ORDERED: Phenylephrine IV 10 MG/ML 1 ml VIAL ONE (16:27)
[2020-08-20] MEDS ORDERED: Ondansetron 4 mg VIAL 2 MG/ML 2 ml VIAL ONE (17:07)
[2020-08-20] MEDS ORDERED: fentaNYL 100 mcg/2 ml 50 MCG/ML VIAL IV PRN (17:09)
[2020-08-20] MEDS ORDERED: MESALAMINE 1.2 GM PO SCH (18:00)
[2020-08-20] MEDS ORDERED: Prochlorperazine 5 mg/ml 2 ml VIAL (10 mg) IV PRN (18:03)
[2020-08-20] MEDS: Lactated Ringers 1000 ml BAG 1,000 ML IV SCH (18:55)
[2020-08-20] MEDS: Magnesium Hydroxide LIQ 30 ML UDC PO SCH (20:43)
[2020-08-20] MEDS: ceFAZolin 1 GM ADVAN 1 GM in NS 0.9% 50 ML 50 ML IVPB SCH (21:39)
[2020-08-21 05:10] LABS: Hematocrit 31 % (35-47); Hemoglobin 10.6 g/dL (12.0-16.0); Mean Platelet Volume 8.5 fL (7.4-10.4); Platelet Count 215 10^3/uL (150-450)
[2020-08-21] MEDS: ceFAZolin 1 GM ADVAN 1 GM in NS 0.9% 50 ML 50 ML IVPB SCH ×2 (05:11→13:17)
[2020-08-21] MEDS: Lactated Ringers 1000 ml BAG 1,000 ML IV SCH (05:11)
[2020-08-21 05:28] LABS: Calcium 8.5 mg/dL (8.6-10.3); EGFR African American 132.1 (>60); EGFR Non-African American 109.2 (>60); Potassium 3.9 mmol/L (3.5-5.0)
[2020-08-21] MEDS: Magnesium Hydroxide LIQ 30 ML UDC PO SCH (08:59)
[2020-08-21] MEDS ORDERED: Vitamin THERAPEUTIC TAB PO SCH (09:00)
[2020-08-21 12:30] VITALS: BP 115/67
== END 2020-08-21 13:40 | disposition home health service (06) | DRG 301 ==
LOC: AA 13:07 → SSU 18:11
PROVIDERS: ADMIT Orthopaedic Surgery Adult Reconstructive Orthopaedic Surgery; ATTEND Orthopaedic Surgery Adult Reconstructive Orthopaedic Surgery